=== PATIENT | male | born 1945 | race African-American/Black ===

== ENCOUNTER 2017-06-04 03:04 | Inpatient (IN) | payer OTHER, BC ==
[~2017-06-04] VITALS: Ht 188 cm; Wt 121.7 kg
[2017-06-04 03:07] VITALS: Ht 188 cm; Wt 121.7 kg
[2017-06-04 04:05] LABS: BASOPHIL % 0.4 % (0-2); PLATELET COUNT 233 x10^3mcL (130-400)
[2017-06-04 04:08] LABS: CALCIUM 8.3 mg/dL (8.5-10.1); CARBON DIOXIDE 22.1 mmol/L (21-32); CHLORIDE SERUM 107 mmol/L (98-107); CREATININE SERUM 1.7 mg/dL (0.7-1.3); GLUCOSE SERUM 300 mg/dL (74-106); POTASSIUM SERUM 3.9 mmol/L (3.5-5.1); SODIUM SERUM 141 mmol/L (136-145)
[2017-06-04 04:16] LABS: ALBUMIN 2.6 g/dL (3.4-5.0); ALKALINE PHOSPHATASE 76 U/L (46-116); ALT/SGPT 24 U/L (16-63); AST/SGOT 11 U/L (15-37); BILIRUBIN TOTAL 0.14 mg/dL (0.20-1.00); FREE T4 0.75 ng/dL (0.76-1.46); RED CELL DISTRIBUTION WIDTH 16.4 % (11.5-14.5); TOTAL PROTEIN, SERUM 6.6 g/dL (6.4-8.2)
[2017-06-04 07:09] VITALS: BP 172/121
[2017-06-04 07:45] LABS: T3 TOTAL 0.57 ng/mL
[2017-06-04 08:05] LABS: CHOLESTEROL/HDL RATIO 3.4; PHOSPHOROUS 3.5 mg/dL (2.5-4.9)
[2017-06-04 08:07] LABS: FREE T4 0.75 ng/dL (0.76-1.46)
[2017-06-04 08:12] LABS: T4(THYROXINE) 2.6 ug/dL (4.7-13.3)
[2017-06-04 09:32] VITALS: BP 159/120
[2017-06-04] MEDS ORDERED: METOPROLOL SUCC50 M2 PO (10:43)
[2017-06-04] MEDS ORDERED: LISINOPRIL5 MG PO (10:43)
[2017-06-04] MEDS ORDERED: POTASSIUM CHLO20 ME1 PO (10:44)
[2017-06-04] MEDS ORDERED: AMITIZA24 MC1 PO (10:46)
[2017-06-04] MEDS ORDERED: [UNRECOGNIZED DRUG - CODE] PO (10:47)
[2017-06-04] MEDS ORDERED: LYRICA50 M1 PO (10:48)
[2017-06-04 13:30] VITALS: BP 171/112
[2017-06-04 13:40] VITALS: BP 171/112
[2017-06-04 16:48] VITALS: BP 160/104
[2017-06-04 19:15] VITALS: BP 137/94
[2017-06-05 03:03] LABS: UA SPECIFIC GRAVITY 1.025 (1.005-1.035); microscopic required? YES; urine erythrocyte TRACE (NEGATIVE)
[2017-06-05 06:29] VITALS: BP 148/83
[2017-06-05 08:29] VITALS: BP 149/114
[2017-06-05 09:35] VITALS: BP 141/94
[2017-06-05 12:53] VITALS: BP 143/95; BP 158/98
[2017-06-05 17:13] VITALS: BP 141/94
[2017-06-05 19:15] VITALS: BP 140/81
[2017-06-06 05:24] VITALS: BP 124/86
[2017-06-06 06:04] LABS: BASOPHIL % 0.4 % (0-2); PLATELET COUNT 214 x10^3mcL (130-400)
[2017-06-06 06:35] LABS: CALCIUM 8.4 mg/dL (8.5-10.1); CARBON DIOXIDE 22.1 mmol/L (21-32); CHLORIDE SERUM 106 mmol/L (98-107); CREATININE SERUM 1.3 mg/dL (0.7-1.3); GLUCOSE SERUM 151 mg/dL (74-106); SODIUM SERUM 134 mmol/L (136-145)
[2017-06-06 06:42] LABS: RED CELL DISTRIBUTION WIDTH 16.3 % (11.5-14.5)
[2017-06-06 09:11] VITALS: BP 152/76
[2017-06-06 13:04] VITALS: BP 132/86
[2017-06-06 17:20] VITALS: BP 127/80
[2017-06-06 20:22] VITALS: BP 128/81
[2017-06-07 05:38] VITALS: BP 126/87
[2017-06-07 06:25] LABS: BASOPHIL % 0.5 % (0-2); PLATELET COUNT 209 x10^3mcL (130-400)
[2017-06-07 06:40] LABS: CALCIUM 8.6 mg/dL (8.5-10.1); CARBON DIOXIDE 24.1 mmol/L (21-32); CHLORIDE SERUM 105 mmol/L (98-107); CREATININE SERUM 1.3 mg/dL (0.7-1.3); GLUCOSE SERUM 204 mg/dL (74-106); POTASSIUM SERUM 3.9 mmol/L (3.5-5.1); SODIUM SERUM 140 mmol/L (136-145)
[2017-06-07 06:44] LABS: RED CELL DISTRIBUTION WIDTH 16.5 % (11.5-14.5)
[2017-06-07 09:02] VITALS: BP 118/79
[2017-06-07] MEDS ORDERED: LEVOFLOXACIN500 M1 PO (10:13)
[2017-06-07] MEDS ORDERED: LAC PO (10:14)
[2017-06-07] MEDS ORDERED: CLEOCIN HCL150 MG PO (10:14)
[2017-06-07 16:37] VITALS: BP 118/79
[2017-06-07 17:15] VITALS: BP 122/72
[2017-06-07 17:18] VITALS: BP 122/72
== END 2017-06-07 19:40 | DRG 177 ==
LOC: ED 03:04 → DU 05:19
PROVIDERS: Emergency Medicine; Family Medicine
DX: J69.0 Pneumonitis due to inhalation of food and vomit (principal); J96.01 Acute respiratory failure with hypoxia; I50.43 Acute on chronic combined systolic (congestive) and diastolic (congestive) heart failure; N17.0 Acute kidney failure with tubular necrosis; E43 Unspecified severe protein-calorie malnutrition; I47.1 Supraventricular tachycardia; I42.9 Cardiomyopathy, unspecified; J44.1 Chronic obstructive pulmonary disease with (acute) exacerbation; K21.9 Gastro-esophageal reflux disease without esophagitis; G47.33 Obstructive sleep apnea (adult) (pediatric); E11.65 Type 2 diabetes mellitus with hyperglycemia; E11.51 Type 2 diabetes mellitus with diabetic peripheral angiopathy without gangrene; I16.0 Hypertensive urgency; I11.0 Hypertensive heart disease with heart failure; I25.10 Atherosclerotic heart disease of native coronary artery without angina pectoris; E66.9 Obesity, unspecified; Z68.36 Body mass index [BMI] 36.0-36.9, adult; Z95.5 Presence of coronary angioplasty implant and graft; Z87.891 Personal history of nicotine dependence
CPT/HCPCS: 83880; 84439; 94150; 97110-GP; 97116-GP; 97530-GP; J0696; J1644; J1815; J1885; J1940; J1956; J3490; J7030; J7040; J7620; Q0092

== ENCOUNTER 2017-06-19 16:09 | Inpatient (IN) | payer OTHER, BC ==
[~2017-06-19] VITALS: Ht 188 cm; Wt 126.4 kg
[~2017-06-19 16:09] MED LIST: AMITIZA24 MC1 PO; CLEOCIN HCL150 MG PO; LAC PO; LEVOFLOXACIN500 M1 PO; LISINOPRIL5 MG PO; LYRICA50 M1 PO; METOPROLOL SUCC50 M2 PO; POTASSIUM CHLO20 ME1 PO; [UNRECOGNIZED DRUG - CODE] PO
[2017-06-19 17:31] LABS: BASOPHIL % 0.4 % (0-2); PLATELET COUNT 195 x10^3mcL (130-400)
[2017-06-19 17:41] LABS: RED CELL DISTRIBUTION WIDTH 15.4 % (11.5-14.5)
[2017-06-19 17:43] LABS: CALCIUM 8.3 mg/dL (8.5-10.1); CARBON DIOXIDE 23.3 mmol/L (21-32); CHLORIDE SERUM 102 mmol/L (98-107); CREATININE SERUM 1.3 mg/dL (0.7-1.3); GLUCOSE SERUM 247 mg/dL (74-106); POTASSIUM SERUM 3.7 mmol/L (3.5-5.1); SODIUM SERUM 136 mmol/L (136-145)
[2017-06-19 17:44] LABS: AMPHETAMINE QUAL UR NONE DETECTED (NEG <=1000)
[2017-06-19 17:47] LABS: ALKALINE PHOSPHATASE 90 U/L (46-116); ALT/SGPT 34 U/L (16-63); AST/SGOT 25 U/L (15-37); BILIRUBIN TOTAL 0.27 mg/dL (0.20-1.00); MAGNESIUM 1.6 mg/dL (1.8-2.4); TOTAL PROTEIN, SERUM 7.5 g/dL (6.4-8.2)
[2017-06-19 17:48] LABS: ALBUMIN 2.9 g/dL (3.4-5.0)
[2017-06-19 17:58] LABS: T3 TOTAL 0.76 ng/mL
[2017-06-19 18:03] LABS: FREE THYROXINE INDEX 1.6 ug/dL (1.4-4.5); T4(THYROXINE) 3.8 ug/dL (4.7-13.3)
[2017-06-19 18:38] LABS: microscopic required? YES; urine erythrocyte TRACE (NEGATIVE)
[2017-06-19] MEDS ORDERED: [UNRECOGNIZED DRUG - CODE] PO (18:51)
[2017-06-19] MEDS ORDERED: LYRICA50 M1 (18:51)
[2017-06-19] MEDS ORDERED: AMITIZA24 MC1 PO (18:52)
[2017-06-19] MEDS ORDERED: ZESTRIL5 MG PO (18:53)
[2017-06-19] MEDS ORDERED: POTASSIUM CHLO20 ME1 PO (18:53)
[2017-06-19 18:54] LABS: CHOLESTEROL/HDL RATIO 3.1
[2017-06-19] MEDS ORDERED: METOPROLOL SUCC50 M2 PO ×2 (18:54→22:05)
[2017-06-19] MEDS ORDERED: LIPI20 PO (19:46)
[2017-06-19] MEDS ORDERED: CARVEDILOL6.25 M1 PO (19:50)
[2017-06-19] MEDS ORDERED: LANTUS SOLOS100 U/M1 SC (20:11)
[2017-06-19 20:19] VITALS: BP 137/98
[2017-06-19 23:52] VITALS: BP 118/71
[2017-06-20 03:25] VITALS: BP 122/71
[2017-06-20 05:22] LABS: BASOPHIL % 0.5 % (0-2); PLATELET COUNT 198 x10^3mcL (130-400)
[2017-06-20 05:31] LABS: RED CELL DISTRIBUTION WIDTH 14.9 % (11.5-14.5)
[2017-06-20 05:35] LABS: CALCIUM 8.3 mg/dL (8.5-10.1); CARBON DIOXIDE 28.8 mmol/L (21-32); CHLORIDE SERUM 103 mmol/L (98-107); CREATININE SERUM 1.4 mg/dL (0.7-1.3); GLUCOSE SERUM 189 mg/dL (74-106); MAGNESIUM 2.2 mg/dL (1.8-2.4); POTASSIUM SERUM 3.5 mmol/L (3.5-5.1); SODIUM SERUM 138 mmol/L (136-145)
[2017-06-20 07:45] VITALS: BP 114/62
[2017-06-20 11:49] VITALS: BP 137/78
[2017-06-20 15:22] VITALS: BP 142/78
[2017-06-20 18:25] VITALS: BP 139/81
[2017-06-20 21:12] VITALS: BP 154/96
[2017-06-21 05:41] VITALS: BP 141/85
[2017-06-21 06:30] LABS: BASOPHIL % 0.3 % (0-2); PLATELET COUNT 202 x10^3mcL (130-400)
[2017-06-21 06:36] LABS: CALCIUM 8.6 mg/dL (8.5-10.1); CARBON DIOXIDE 28.4 mmol/L (21-32); CHLORIDE SERUM 105 mmol/L (98-107); CREATININE SERUM 1.3 mg/dL (0.7-1.3); GLUCOSE SERUM 84 mg/dL (74-106); MAGNESIUM 2.2 mg/dL (1.8-2.4); PHOSPHOROUS 3.6 mg/dL (2.5-4.9); POTASSIUM SERUM 3.9 mmol/L (3.5-5.1); SODIUM SERUM 139 mmol/L (136-145)
[2017-06-21 06:43] LABS: RED CELL DISTRIBUTION WIDTH 15.4 % (11.5-14.5)
[2017-06-21 09:40] VITALS: BP 141/85
[2017-06-21 13:45] VITALS: BP 125/73
[2017-06-21 16:49] VITALS: BP 126/69
[2017-06-21 19:31] VITALS: Ht 188 cm; Wt 126.4 kg
[2017-06-21 20:51] VITALS: BP 189/108
[2017-06-21 22:02] VITALS: BP 147/85
[2017-06-22 06:13] VITALS: BP 153/94
[2017-06-22 07:02] LABS: BASOPHIL % 0.3 % (0-2); PLATELET COUNT 218 x10^3mcL (130-400)
[2017-06-22 07:16] LABS: CALCIUM 9.1 mg/dL (8.5-10.1); CARBON DIOXIDE 27.9 mmol/L (21-32); CHLORIDE SERUM 104 mmol/L (98-107); CREATININE SERUM 1.3 mg/dL (0.7-1.3); GLUCOSE SERUM 99 mg/dL (74-106); PHOSPHOROUS 3.5 mg/dL (2.5-4.9); POTASSIUM SERUM 4.3 mmol/L (3.5-5.1); SODIUM SERUM 139 mmol/L (136-145)
[2017-06-22 07:47] LABS: RED CELL DISTRIBUTION WIDTH 15.3 % (11.5-14.5)
[2017-06-22 08:39] VITALS: BP 166/93
[2017-06-22 12:36] VITALS: BP 174/87
[2017-06-22] MEDS ORDERED: XARELTO20 M1 PO (12:53)
[2017-06-22] MEDS ORDERED: PROS5 PO (12:54)
[2017-06-22] MEDS ORDERED: COR200 PO ×2 (12:56→12:57)
[2017-06-22] MEDS ORDERED: NIT0.4 SL (12:58)
[2017-06-22] MEDS ORDERED: TOP50 PO (13:03)
[2017-06-22 13:59] VITALS: BP 174/87
[2017-06-22 14:07] VITALS: BP 150/98
== END 2017-06-22 16:10 | disposition home health service (06) | DRG 291 ==
LOC: ED 16:09 → IC 18:10 → DU 18:10 → IC 19:54 → DU 06-20 18:09
PROVIDERS: Emergency Medicine; Family Medicine
DX: I11.0 Hypertensive heart disease with heart failure (principal); N17.0 Acute kidney failure with tubular necrosis; E44.0 Moderate protein-calorie malnutrition; I48.91 Unspecified atrial fibrillation; I50.43 Acute on chronic combined systolic (congestive) and diastolic (congestive) heart failure; E83.42 Hypomagnesemia; R33.9 Retention of urine, unspecified; Z68.35 Body mass index [BMI] 35.0-35.9, adult; E11.40 Type 2 diabetes mellitus with diabetic neuropathy, unspecified; K21.9 Gastro-esophageal reflux disease without esophagitis; N40.0 Benign prostatic hyperplasia without lower urinary tract symptoms; R31.9 Hematuria, unspecified; E11.65 Type 2 diabetes mellitus with hyperglycemia; E11.21 Type 2 diabetes mellitus with diabetic nephropathy; J44.9 Chronic obstructive pulmonary disease, unspecified; R26.81 Unsteadiness on feet; I42.9 Cardiomyopathy, unspecified; I25.119 Atherosclerotic heart disease of native coronary artery with unspecified angina pectoris; I16.0 Hypertensive urgency; Z95.5 Presence of coronary angioplasty implant and graft; Z99.3 Dependence on wheelchair; Z79.4 Long term (current) use of insulin; Z79.899 Other long term (current) drug therapy; Z87.01 Personal history of pneumonia (recurrent)
CPT/HCPCS: 76770; 83880; 84439; 94150; 97110-GP; 97116-GP; 97530-GP; J1644; J1815; J1940; J2270; J2405; J3475; J3490; J7030; J7040; Q0092

== ENCOUNTER 2017-08-10 12:14 | Observation (INO) | payer OTHER, BC ==
[2017-08-10] VITALS (7 sets, daily range): BP systolic 153–180; BP diastolic 99–112; Ht 188 cm; Wt 125.3 kg
[~2017-08-10] VITALS: Ht 188 cm; Wt 125.3 kg
[~2017-08-10 12:14] MED LIST changes: +CARVEDILOL6.25 M1 PO; +COR200 PO; +LANTUS SOLOS100 U/M1 SC; +LIPI20 PO; +LYRICA50 M1; +NIT0.4 SL; +PROS5 PO; +TOP50 PO; +XARELTO20 M1 PO; +ZESTRIL5 MG PO
[2017-08-10 12:54] LABS: BASOPHIL % 0.7 % (0-2); PLATELET COUNT 199 x10^3mcL (130-400); RED CELL DISTRIBUTION WIDTH 14.5 % (11.5-14.5)
[2017-08-10 12:59] LABS: CALCIUM 8.9 mg/dL (8.5-10.1); CARBON DIOXIDE 24.4 mmol/L (21-32); CHLORIDE SERUM 104 mmol/L (98-107); CREATININE SERUM 1.4 mg/dL (0.7-1.3); GLUCOSE SERUM 157 mg/dL (74-106); POTASSIUM SERUM 3.8 mmol/L (3.5-5.1); SODIUM SERUM 141 mmol/L (136-145)
[2017-08-10 14:03] LABS: microscopic required? YES; urine erythrocyte 1+ (NEGATIVE)
[2017-08-10 14:12] LABS: AMPHETAMINE QUAL UR NONE DETECTED
[2017-08-10 15:46] LABS: MAGNESIUM 1.8 mg/dL (1.8-2.4); PHOSPHOROUS 3.2 mg/dL (2.5-4.9)
[2017-08-10 15:49] LABS: CHOLESTEROL/HDL RATIO 2.7
[2017-08-10 15:55] LABS: FREE T4 0.98 ng/dL (0.76-1.46); FREE THYROXINE INDEX 1.9 ug/dL (1.4-4.5); T3 TOTAL 0.7 ng/mL; T4(THYROXINE) 4.7 ug/dL (4.7-13.3)
[2017-08-11 05:27] VITALS: BP 139/88
[2017-08-11 07:12] LABS: BASOPHIL % 0.4 % (0-2); PLATELET COUNT 205 x10^3mcL (130-400); RED CELL DISTRIBUTION WIDTH 14.3 % (11.5-14.5)
[2017-08-11 07:57] LABS: CALCIUM 8.6 mg/dL (8.5-10.1); CARBON DIOXIDE 22.8 mmol/L (21-32); CHLORIDE SERUM 107 mmol/L (98-107); CREATININE SERUM 1.3 mg/dL (0.7-1.3); GLUCOSE SERUM 83 mg/dL (74-106); MAGNESIUM 1.8 mg/dL (1.8-2.4); POTASSIUM SERUM 3.5 mmol/L (3.5-5.1); SODIUM SERUM 140 mmol/L (136-145)
[2017-08-11 09:25] VITALS: BP 165/100
[2017-08-11 16:05] VITALS: BP 154/106
[2017-08-11 16:20] VITALS: BP 154/106
[2017-08-11 18:03] VITALS: BP 175/106
[2017-08-11 18:31] VITALS: BP 149/95
== END 2017-08-11 18:50 | disposition home health service (06) | DRG 308 ==
LOC: ED 12:14 → DU 14:44 → EDBEDREQ 14:47 → DU 15:17
PROVIDERS: Emergency Medicine; Family Medicine
DX: I47.1 Supraventricular tachycardia (principal); N17.0 Acute kidney failure with tubular necrosis; R80.9 Proteinuria, unspecified; I25.10 Atherosclerotic heart disease of native coronary artery without angina pectoris; E11.65 Type 2 diabetes mellitus with hyperglycemia; E11.42 Type 2 diabetes mellitus with diabetic polyneuropathy; E02 Subclinical iodine-deficiency hypothyroidism; I48.91 Unspecified atrial fibrillation; N40.0 Benign prostatic hyperplasia without lower urinary tract symptoms; I16.0 Hypertensive urgency; F14.10 Cocaine abuse, uncomplicated; Z68.35 Body mass index [BMI] 35.0-35.9, adult; Z95.5 Presence of coronary angioplasty implant and graft
CPT/HCPCS: 83880; 84439; G0378; J0360; J1885; J3490; J7030; Q0092

== ENCOUNTER 2017-08-24 12:09 | Emergency (ER) | payer OTHER, BC ==
[~2017-08-24] VITALS: Ht 188 cm; Wt 128.8 kg
[2017-08-24 12:18] VITALS: Ht 188 cm; Wt 128.8 kg
[2017-08-24 12:54] LABS: BASOPHIL % 0.4 % (0-2); PLATELET COUNT 230 x10^3mcL (130-400); RED CELL DISTRIBUTION WIDTH 14.4 % (11.5-14.5)
[2017-08-24 13:06] LABS: CALCIUM 8.9 mg/dL (8.5-10.1); CARBON DIOXIDE 27.9 mmol/L (21-32); CHLORIDE SERUM 103 mmol/L (98-107); CREATININE SERUM 1.4 mg/dL (0.7-1.3); GLUCOSE SERUM 216 mg/dL (74-106); POTASSIUM SERUM 3.9 mmol/L (3.5-5.1); SODIUM SERUM 137 mmol/L (136-145)
[2017-08-24 13:13] LABS: ALKALINE PHOSPHATASE 113 U/L (46-116); ALT/SGPT 30 U/L (16-63); AST/SGOT 20 U/L (15-37); BILIRUBIN TOTAL 0.3 mg/dL (0.20-1.00); CHOLESTEROL 146 mg/dL (<200); CHOLESTEROL/HDL RATIO 2.9; HDL CHOLESTEROL 50 mg/dL (40-60); LIPASE 91 IU/L (73-393); TOTAL PROTEIN, SERUM 8.2 g/dL (6.4-8.2); TRIGLYCERIDES 125 mg/dL (<150)
[2017-08-24 13:18] LABS: ALBUMIN 3.3 g/dL (3.4-5.0); T3 TOTAL 0.59 ng/mL
[2017-08-24 13:21] LABS: FREE T4 0.85 ng/dL (0.76-1.46)
[2017-08-24 13:23] LABS: FREE THYROXINE INDEX 1.6 ug/dL (1.4-4.5)
[2017-08-24 14:16] LABS: MAGNESIUM 1.9 mg/dL (1.8-2.4); PHOSPHOROUS 2.8 mg/dL (2.5-4.9)
[2017-08-24 17:57] LABS: microscopic required? YES; urine erythrocyte 1+ (NEGATIVE)
[2017-08-24 18:21] LABS: AMPHETAMINE QUAL UR NONE DETECTED (See below)
[2017-08-24 22:10] VITALS: BP 168/109
== END 2017-08-24 22:10 | disposition home or self-care (01) ==
LOC: ED 12:09
PROVIDERS: Family Medicine; Specialist
DX: I25.10 Atherosclerotic heart disease of native coronary artery without angina pectoris (principal); I10 Essential (primary) hypertension; E11.9 Type 2 diabetes mellitus without complications
CPT/HCPCS: 83880; 84439; J1815; J1940; J3490; Q0092

== ENCOUNTER 2017-09-20 03:03 | Inpatient (IN) | payer OTHER, BC ==
[~2017-09-20] VITALS: Ht 188 cm; Wt 129.7 kg
[2017-09-20] VITALS (7 sets, daily range): BP systolic 139–178; BP diastolic 89–105; Ht 188 cm; Wt 129.7 kg
[2017-09-20 03:46] LABS: BASOPHIL % 0.5 % (0-2); PLATELET COUNT 208 x10^3mcL (130-400)
[2017-09-20 04:10] LABS: CALCIUM 8.8 mg/dL (8.5-10.1); CARBON DIOXIDE 22.5 mmol/L (21-32); CHLORIDE SERUM 106 mmol/L (98-107); CREATININE SERUM 1.5 mg/dL (0.7-1.3); GLUCOSE SERUM 154 mg/dL (74-106); POTASSIUM SERUM 3.7 mmol/L (3.5-5.1); SODIUM SERUM 140 mmol/L (136-145)
[2017-09-20 04:20] LABS: ALKALINE PHOSPHATASE 101 U/L (46-116); ALT/SGPT 25 U/L (16-63); AST/SGOT 28 U/L (15-37); TOTAL PROTEIN, SERUM 7.7 g/dL (6.4-8.2)
[2017-09-20 04:28] LABS: ALBUMIN 3.1 g/dL (3.4-5.0)
[2017-09-20 05:17] LABS: AMPHETAMINE QUAL UR NONE DETECTED (See below)
[2017-09-20 08:16] LABS: FREE T4 0.96 ng/dL (0.76-1.46)
[2017-09-20 08:17] LABS: FREE THYROXINE INDEX 1.6 ug/dL (1.4-4.5); T4(THYROXINE) 3.8 ug/dL (4.7-13.3)
[2017-09-20 08:28] LABS: T3 TOTAL 0.65 ng/mL
[2017-09-20 08:51] LABS: CHOLESTEROL/HDL RATIO 2.6; MAGNESIUM 1.8 mg/dL (1.8-2.4); PHOSPHOROUS 3.8 mg/dL (2.5-4.9)
[2017-09-20 09:11] LABS: microscopic required? YES; urine erythrocyte 1+ (NEGATIVE)
[2017-09-21 05:43] VITALS: BP 145/91
[2017-09-21 07:47] LABS: BASOPHIL % 0.5 % (0-2); PLATELET COUNT 186 x10^3mcL (130-400)
[2017-09-21 07:49] LABS: RED CELL DISTRIBUTION WIDTH 15.3 % (11.5-14.5); rbc morphology (normal/abnorm) ABNORMAL (NORMAL)
[2017-09-21 08:06] LABS: CALCIUM 8.2 mg/dL (8.5-10.1); CARBON DIOXIDE 24.5 mmol/L (21-32); CHLORIDE SERUM 104 mmol/L (98-107); CREATININE SERUM 1.3 mg/dL (0.7-1.3); GLUCOSE SERUM 168 mg/dL (74-106); POTASSIUM SERUM 3.8 mmol/L (3.5-5.1); SODIUM SERUM 139 mmol/L (136-145)
[2017-09-21 14:51] VITALS: BP 157/98
[2017-09-21 18:31] VITALS: BP 158/102
[2017-09-21 21:34] VITALS: BP 169/110
[2017-09-22] VITALS (8 sets, daily range): BP systolic 131–170; BP diastolic 68–106
[2017-09-22 09:42] LABS: BASOPHIL % 0.4 % (0-2); PLATELET COUNT 187 x10^3mcL (130-400)
[2017-09-22 09:44] LABS: RED CELL DISTRIBUTION WIDTH 15.2 % (11.5-14.5)
[2017-09-22 10:00] LABS: CALCIUM 8.6 mg/dL (8.5-10.1); CARBON DIOXIDE 25.3 mmol/L (21-32); CHLORIDE SERUM 103 mmol/L (98-107); CREATININE SERUM 1.3 mg/dL (0.7-1.3); GLUCOSE SERUM 213 mg/dL (74-106); MAGNESIUM 1.8 mg/dL (1.8-2.4); PHOSPHOROUS 3.6 mg/dL (2.5-4.9); POTASSIUM SERUM 4.2 mmol/L (3.5-5.1); SODIUM SERUM 138 mmol/L (136-145)
[2017-09-22] MEDS ORDERED: COR200 PO (13:52)
[2017-09-22] MEDS ORDERED: XARELTO20 M1 PO (13:52)
[2017-09-22] MEDS ORDERED: LIPI10 PO (13:54)
[2017-09-22] MEDS ORDERED: TOP50 PO (13:54)
[2017-09-22] MEDS ORDERED: ZES10 PO (13:55)
[2017-09-22] MEDS ORDERED: NOR5 PO (13:55)
[2017-09-22] MEDS ORDERED: ECO81 PO (13:56)
[2017-09-22] MEDS ORDERED: ZES20 PO (13:56)
== END 2017-09-22 15:15 | disposition home or self-care (01) | DRG 304 ==
LOC: ED 03:03 → DU 05:32
PROVIDERS: Emergency Medicine; Internal Medicine
DX: I16.0 Hypertensive urgency (principal); I50.43 Acute on chronic combined systolic (congestive) and diastolic (congestive) heart failure; N17.0 Acute kidney failure with tubular necrosis; E44.1 Mild protein-calorie malnutrition; I11.0 Hypertensive heart disease with heart failure; E11.65 Type 2 diabetes mellitus with hyperglycemia; E11.42 Type 2 diabetes mellitus with diabetic polyneuropathy; Z68.36 Body mass index [BMI] 36.0-36.9, adult; Z79.01 Long term (current) use of anticoagulants; Z79.4 Long term (current) use of insulin
CPT/HCPCS: 83880; 84439; J3490; J7030; Q0092

== ENCOUNTER 2017-09-24 21:35 | Inpatient (IN) | payer OTHER, BC ==
[~2017-09-24] VITALS: Ht 188 cm; Wt 125.0 kg
[~2017-09-24 21:35] MED LIST changes: +ECO81 PO; +LIPI10 PO; +NOR5 PO; +ZES10 PO; +ZES20 PO
[2017-09-24 21:39] VITALS: Ht 188 cm; Wt 125.0 kg
[2017-09-24 23:03] LABS: BASOPHIL % 0.6 % (0-2); PLATELET COUNT 211 x10^3mcL (130-400)
[2017-09-24 23:09] LABS: RED CELL DISTRIBUTION WIDTH 15.4 % (11.5-14.5)
[2017-09-24 23:30] LABS: microscopic required? YES; urine erythrocyte 1+ (NEGATIVE)
[2017-09-25 00:26] LABS: CALCIUM 9.2 mg/dL (8.5-10.1); CARBON DIOXIDE 27.2 mmol/L (21-32); CHLORIDE SERUM 103 mmol/L (98-107); CREATININE SERUM 1.4 mg/dL (0.7-1.3); GLUCOSE SERUM 180 mg/dL (74-106); OSMOLALITY SERUM 300 mOsm/kg (278-298); POTASSIUM SERUM 4.1 mmol/L (3.5-5.1); SODIUM SERUM 139 mmol/L (136-145)
[2017-09-25 00:40] LABS: ALKALINE PHOSPHATASE 105 U/L (46-116); ALT/SGPT 27 U/L (16-63); AST/SGOT 17 U/L (15-37); BILIRUBIN TOTAL 0.3 mg/dL (0.20-1.00); FREE T4 0.94 ng/dL (0.76-1.46); LIPASE 90 IU/L (73-393); TOTAL PROTEIN, SERUM 8.1 g/dL (6.4-8.2)
[2017-09-25 00:54] LABS: ALBUMIN 3.1 g/dL (3.4-5.0)
[2017-09-25 02:27] VITALS: BP 149/87
[2017-09-25 05:12] VITALS: BP 151/93
[2017-09-25 09:00] VITALS: BP 162/93
[2017-09-25 12:16] VITALS: BP 154/92
[2017-09-25 18:27] VITALS: BP 149/90
[2017-09-25 21:35] VITALS: BP 118/89
[2017-09-26 05:51] VITALS: BP 129/86
[2017-09-26 06:43] LABS: BASOPHIL % 0.3 % (0-2); PLATELET COUNT 185 x10^3mcL (130-400)
[2017-09-26 06:51] LABS: RED CELL DISTRIBUTION WIDTH 14.9 % (11.5-14.5)
[2017-09-26 07:04] LABS: CALCIUM 7.9 mg/dL (8.5-10.1); CARBON DIOXIDE 26.5 mmol/L (21-32); CHLORIDE SERUM 107 mmol/L (98-107); CREATININE SERUM 1.3 mg/dL (0.7-1.3); GLUCOSE SERUM 146 mg/dL (74-106); MAGNESIUM 1.7 mg/dL (1.8-2.4); POTASSIUM SERUM 3.8 mmol/L (3.5-5.1); SODIUM SERUM 140 mmol/L (136-145)
[2017-09-26 09:19] VITALS: BP 147/89
[2017-09-26 13:23] VITALS: BP 130/82
[2017-09-26 17:39] VITALS: BP 149/93
[2017-09-26 21:18] VITALS: BP 150/85
[2017-09-27 05:55] VITALS: BP 155/86
[2017-09-27 06:51] LABS: BASOPHIL % 0.6 % (0-2); PLATELET COUNT 224 x10^3mcL (130-400); RED CELL DISTRIBUTION WIDTH 14.4 % (11.5-14.5)
[2017-09-27 06:56] LABS: CALCIUM 9.3 mg/dL (8.5-10.1); CARBON DIOXIDE 27.8 mmol/L (21-32); CHLORIDE SERUM 103 mmol/L (98-107); CREATININE SERUM 1.3 mg/dL (0.7-1.3); GLUCOSE SERUM 137 mg/dL (74-106); MAGNESIUM 1.9 mg/dL (1.8-2.4); PHOSPHOROUS 3.7 mg/dL (2.5-4.9); POTASSIUM SERUM 3.9 mmol/L (3.5-5.1); SODIUM SERUM 136 mmol/L (136-145)
[2017-09-27 08:54] VITALS: BP 168/95
[2017-09-27 13:34] VITALS: BP 136/88
[2017-09-27 17:15] VITALS: BP 162/92
[2017-09-27 20:42] VITALS: BP 157/88
[2017-09-28 05:38] VITALS: BP 140/82
[2017-09-28 08:28] VITALS: BP 138/78
[2017-09-28 13:22] VITALS: BP 144/76
[2017-09-28] MEDS ORDERED: XARELTO20 M1 PO (14:46)
[2017-09-28] MEDS ORDERED: COR200 PO (14:49)
[2017-09-28] MEDS ORDERED: LIPI10 PO (14:50)
[2017-09-28] MEDS ORDERED: TOP50 PO (14:53)
[2017-09-28] MEDS ORDERED: ADA30 PO (14:57)
[2017-09-28] MEDS ORDERED: ZES20 PO (14:58)
== END 2017-09-28 16:00 | disposition home or self-care (01) | DRG 291 ==
LOC: ED 21:35 → DU 09-25 00:28
PROVIDERS: Emergency Medicine; Family Medicine; Internal Medicine
DX: I11.0 Hypertensive heart disease with heart failure (principal); N17.0 Acute kidney failure with tubular necrosis; E44.0 Moderate protein-calorie malnutrition; I16.0 Hypertensive urgency; I50.43 Acute on chronic combined systolic (congestive) and diastolic (congestive) heart failure; I42.0 Dilated cardiomyopathy; I48.0 Paroxysmal atrial fibrillation; E11.65 Type 2 diabetes mellitus with hyperglycemia; E11.51 Type 2 diabetes mellitus with diabetic peripheral angiopathy without gangrene; E11.42 Type 2 diabetes mellitus with diabetic polyneuropathy; R80.9 Proteinuria, unspecified; E83.42 Hypomagnesemia; N28.1 Cyst of kidney, acquired; M94.0 Chondrocostal junction syndrome [Tietze]; K21.9 Gastro-esophageal reflux disease without esophagitis; I25.10 Atherosclerotic heart disease of native coronary artery without angina pectoris; Z68.35 Body mass index [BMI] 35.0-35.9, adult; Z95.5 Presence of coronary angioplasty implant and graft
CPT/HCPCS: 83880; 84439; 85378; 97110-GP; 97116-GP; 97530-GP; A9500; J2785; J7030; Q0092; Q9967

== ENCOUNTER 2017-10-27 11:35 | Inpatient (IN) | payer OTHER, BC ==
[~2017-10-27] VITALS: Ht 188 cm; Wt 127.7 kg
[~2017-10-27 11:35] MED LIST changes: +ADA30 PO
[2017-10-27 11:45] VITALS: Ht 188 cm; Wt 127.7 kg
[2017-10-27 11:58] LABS: BASOPHIL % 0.4 % (0-2); PLATELET COUNT 201 x10^3mcL (130-400)
[2017-10-27 12:18] LABS: CALCIUM 8.9 mg/dL (8.5-10.1); CARBON DIOXIDE 23.5 mmol/L (21-32); CHLORIDE SERUM 104 mmol/L (98-107); CREATININE SERUM 1.5 mg/dL (0.7-1.3); GLUCOSE SERUM 236 mg/dL (74-106); POTASSIUM SERUM 4.1 mmol/L (3.5-5.1); SODIUM SERUM 136 mmol/L (136-145)
[2017-10-27 12:23] LABS: ALBUMIN 3.1 g/dL (3.4-5.0); ALKALINE PHOSPHATASE 97 U/L (46-116); ALT/SGPT 20 U/L (16-63); AST/SGOT 22 U/L (15-37); BILIRUBIN TOTAL 0.4 mg/dL (0.20-1.00); TOTAL PROTEIN, SERUM 7.9 g/dL (6.4-8.2)
[2017-10-27 13:53] LABS: MAGNESIUM 1.9 mg/dL (1.8-2.4); PHOSPHOROUS 3.2 mg/dL (2.5-4.9)
[2017-10-27 13:58] LABS: CHOLESTEROL/HDL RATIO 2.4
[2017-10-27 14:06] LABS: FREE T4 1.08 ng/dL (0.76-1.46)
[2017-10-27 14:11] LABS: T3 TOTAL 0.53 ng/mL
[2017-10-27 14:17] LABS: FREE THYROXINE INDEX 1.8 ug/dL (1.4-4.5); T4(THYROXINE) 4.4 ug/dL (4.7-13.3)
[2017-10-27 14:45] LABS: microscopic required? YES; urine erythrocyte 1+ (NEGATIVE)
[2017-10-27 15:41] LABS: AMPHETAMINE QUAL UR NONE DETECTED (See below)
[2017-10-27 15:50] VITALS: BP 171/90
[2017-10-27 16:28] VITALS: BP 171/90
[2017-10-27 18:51] VITALS: BP 159/91
[2017-10-27 21:18] VITALS: BP 173/95
[2017-10-27 22:50] VITALS: BP 154/102
[2017-10-28 00:53] VITALS: BP 149/95
[2017-10-28 06:12] VITALS: BP 105/71
[2017-10-28 06:17] LABS: BASOPHIL % 0.5 % (0-2); PLATELET COUNT 207 x10^3mcL (130-400)
[2017-10-28 06:25] LABS: CALCIUM 8.7 mg/dL (8.5-10.1); CARBON DIOXIDE 23.2 mmol/L (21-32); CHLORIDE SERUM 104 mmol/L (98-107); CREATININE SERUM 1.2 mg/dL (0.7-1.3); GLUCOSE SERUM 100 mg/dL (74-106); MAGNESIUM 1.8 mg/dL (1.8-2.4); PHOSPHOROUS 4.2 mg/dL (2.5-4.9); POTASSIUM SERUM 3.8 mmol/L (3.5-5.1); SODIUM SERUM 136 mmol/L (136-145)
[2017-10-28 09:12] VITALS: BP 122/86
[2017-10-28 13:21] VITALS: BP 109/71
[2017-10-28] MEDS ORDERED: PROCARDIA XL90 MG PO (14:14)
[2017-10-28 15:16] VITALS: BP 109/71
== END 2017-10-28 18:23 | disposition home or self-care (01) | DRG 304 ==
LOC: ED 11:35 → DU 13:05
PROVIDERS: Emergency Medicine; Family Medicine
DX: I16.0 Hypertensive urgency (principal); N17.0 Acute kidney failure with tubular necrosis; E44.1 Mild protein-calorie malnutrition; D68.69 Other thrombophilia; E11.65 Type 2 diabetes mellitus with hyperglycemia; I48.0 Paroxysmal atrial fibrillation; I50.9 Heart failure, unspecified; G47.33 Obstructive sleep apnea (adult) (pediatric); E66.01 Morbid (severe) obesity due to excess calories; Z68.36 Body mass index [BMI] 36.0-36.9, adult
CPT/HCPCS: 82962; 83880; 84439; 94150; G0480; J2270; J3490; J7030; J7620; Q0092

== ENCOUNTER 2017-11-18 22:32 | Emergency (ER) | payer OTHER, BC ==
[~2017-11-18] VITALS: Ht 188 cm; Wt 129.7 kg
[~2017-11-18 22:32] MED LIST changes: +PROCARDIA XL90 MG PO
[2017-11-18 22:40] VITALS: Ht 188 cm; Wt 129.7 kg
[2017-11-18 23:37] LABS: BASOPHIL % 0.7 % (0-2); PLATELET COUNT 214 x10^3mcL (130-400)
[2017-11-18 23:42] LABS: RED CELL DISTRIBUTION WIDTH 14.8 % (11.5-14.5)
[2017-11-18 23:45] LABS: CALCIUM 8.9 mg/dL (8.5-10.1); CARBON DIOXIDE 28.6 mmol/L (21-32); CHLORIDE SERUM 104 mmol/L (98-107); CREATININE SERUM 1.8 mg/dL (0.7-1.3); GLUCOSE SERUM 221 mg/dL (74-106); POTASSIUM SERUM 3.9 mmol/L (3.5-5.1); SODIUM SERUM 137 mmol/L (136-145)
[2017-11-18 23:50] LABS: ALKALINE PHOSPHATASE 96 U/L (46-116); ALT/SGPT 26 U/L (16-63); AST/SGOT 19 U/L (15-37); BILIRUBIN TOTAL 0.2 mg/dL (0.20-1.00); TOTAL PROTEIN, SERUM 7.6 g/dL (6.4-8.2)
[2017-11-19] MEDS ORDERED: LANTUS SOLOS100 U/M1 SC (01:28)
[2017-11-19] MEDS ORDERED: ASPIR-TRIN325 MG PO (01:29)
[2017-11-19 04:21] LABS: MAGNESIUM 2.1 mg/dL (1.8-2.4); PHOSPHOROUS 3.4 mg/dL (2.5-4.9)
[2017-11-19 04:27] LABS: FREE T4 0.91 ng/dL (0.76-1.46)
[2017-11-19 04:35] LABS: CHOLESTEROL/HDL RATIO 2.5; FREE THYROXINE INDEX 1.4 ug/dL (1.4-4.5); T4(THYROXINE) 3.8 ug/dL (4.7-13.3)
[2017-11-19 05:05] LABS: T3 TOTAL 0.41 ng/mL
[2017-11-19 06:31] LABS: microscopic required? YES; urine erythrocyte TRACE (NEGATIVE)
[2017-11-19 07:12] LABS: AMPHETAMINE QUAL UR NONE DETECTED (See below)
[2017-11-19 19:17] VITALS: BP 138/84
== END 2017-11-19 19:17 | disposition home or self-care (01) ==
LOC: ED 22:32 → CANBEDREQ 11-19 01:41 → ED 11-19 19:17
PROVIDERS: Emergency Medicine; Family Medicine
DX: R07.2 Precordial pain (principal); I10 Essential (primary) hypertension; E11.9 Type 2 diabetes mellitus without complications; R06.02 Shortness of breath; R61 Generalized hyperhidrosis; Z87.438 Personal history of other diseases of male genital organs
CPT/HCPCS: 82962; 83880; 84439; 85378; J1815; J7030; Q0092

== ENCOUNTER 2017-12-06 15:51 | Inpatient (IN) | payer OTHER, BC ==
[~2017-12-06] VITALS: Ht 185.4 cm; Wt 127.5 kg
[~2017-12-06 15:51] MED LIST changes: +ASPIR-TRIN325 MG PO
[2017-12-06 17:41] LABS: BASOPHIL % 0.4 % (0-2); PLATELET COUNT 240 x10^3mcL (130-400); RED CELL DISTRIBUTION WIDTH 15.6 % (11.5-14.5)
[2017-12-06 17:52] LABS: CARBON DIOXIDE 27.5 mmol/L (21-32); CHLORIDE SERUM 105 mmol/L (98-107); CREATININE SERUM 1.8 mg/dL (0.7-1.3); GLUCOSE SERUM 215 mg/dL (74-106); POTASSIUM SERUM 4.4 mmol/L (3.5-5.1); SODIUM SERUM 141 mmol/L (136-145)
[2017-12-06 17:59] LABS: ALKALINE PHOSPHATASE 98 U/L (46-116); ALT/SGPT 27 U/L (16-63); AST/SGOT 15 U/L (15-37); BILIRUBIN TOTAL 0.22 mg/dL (0.20-1.00); TOTAL PROTEIN, SERUM 7.9 g/dL (6.4-8.2)
[2017-12-06 18:00] LABS: ALBUMIN 3.1 g/dL (3.4-5.0)
[2017-12-06 19:34] LABS: MAGNESIUM 2.1 mg/dL (1.8-2.4); PHOSPHOROUS 3.7 mg/dL (2.5-4.9)
[2017-12-06 19:41] LABS: T3 TOTAL 0.54 ng/mL
[2017-12-06 20:38] VITALS: BP 150/107
[2017-12-06 21:03] LABS: FREE T4 0.92 ng/dL (0.76-1.46); T4(THYROXINE) 4.7 ug/dL (4.7-13.3)
[2017-12-07] VITALS (8 sets, daily range): BP systolic 111–166; BP diastolic 55–110
[2017-12-07] MEDS ORDERED: LIPI10 PO (02:26)
[2017-12-07] MEDS ORDERED: NOR5 PO (02:26)
[2017-12-07 06:10] LABS: BASOPHIL % 0.5 % (0-2); PLATELET COUNT 197 x10^3mcL (130-400)
[2017-12-07 06:11] LABS: RED CELL DISTRIBUTION WIDTH 15.8 % (11.5-14.5)
[2017-12-07 06:19] LABS: CALCIUM 9.3 mg/dL (8.5-10.1); CARBON DIOXIDE 24.5 mmol/L (21-32); CHLORIDE SERUM 105 mmol/L (98-107); CREATININE SERUM 1.6 mg/dL (0.7-1.3); GLUCOSE SERUM 242 mg/dL (74-106); PHOSPHOROUS 3.7 mg/dL (2.5-4.9); POTASSIUM SERUM 3.7 mmol/L (3.5-5.1); SODIUM SERUM 137 mmol/L (136-145)
[2017-12-08] VITALS: BP 143/81
[2017-12-08 04:00] VITALS: BP 130/68
[2017-12-08 06:07] LABS: BASOPHIL % 0.5 % (0-2); PLATELET COUNT 213 x10^3mcL (130-400)
[2017-12-08 06:29] LABS: RED CELL DISTRIBUTION WIDTH 14.9 % (11.5-14.5)
[2017-12-08 06:36] LABS: CALCIUM 9.2 mg/dL (8.5-10.1); CARBON DIOXIDE 26.8 mmol/L (21-32); CHLORIDE SERUM 104 mmol/L (98-107); CREATININE SERUM 1.5 mg/dL (0.7-1.3); GLUCOSE SERUM 112 mg/dL (74-106); PHOSPHOROUS 4.3 mg/dL (2.5-4.9); POTASSIUM SERUM 4.2 mmol/L (3.5-5.1); SODIUM SERUM 139 mmol/L (136-145)
[2017-12-08 07:45] VITALS: BP 139/71
[2017-12-08 09:25] VITALS: Ht 185.4 cm; Wt 127.5 kg
[2017-12-08 12:33] VITALS: BP 167/85
[2017-12-08 17:19] VITALS: BP 137/86
[2017-12-08 21:06] VITALS: BP 132/90
[2017-12-09 06:00] VITALS: BP 148/70
[2017-12-09 06:20] LABS: BASOPHIL % 0.5 % (0-2); PLATELET COUNT 204 x10^3mcL (130-400); RED CELL DISTRIBUTION WIDTH 14.5 % (11.5-14.5)
[2017-12-09 06:30] LABS: CALCIUM 8.6 mg/dL (8.5-10.1); CARBON DIOXIDE 26.9 mmol/L (21-32); CHLORIDE SERUM 106 mmol/L (98-107); CREATININE SERUM 1.4 mg/dL (0.7-1.3); GLUCOSE SERUM 120 mg/dL (74-106); MAGNESIUM 1.8 mg/dL (1.8-2.4); PHOSPHOROUS 3.6 mg/dL (2.5-4.9); POTASSIUM SERUM 3.9 mmol/L (3.5-5.1); SODIUM SERUM 142 mmol/L (136-145)
[2017-12-09 09:31] VITALS: BP 130/79
[2017-12-09] MEDS ORDERED: LOP50 PO (10:01)
[2017-12-09] MEDS ORDERED: CARCD120 PO (10:02)
[2017-12-09 11:18] VITALS: BP 130/79
[2017-12-09 11:25] VITALS: BP 130/79
== END 2017-12-09 13:00 | disposition home or self-care (01) | DRG 308 ==
LOC: ED 15:51 → IC 18:45 → EDBEDREQSVC 19:00 → EDBEDREQ 19:00 → EDBEDREQSVC 19:01 → IC 19:19 → DU 12-08 13:21
PROVIDERS: Emergency Medicine; Internal Medicine
DX: I48.92 Unspecified atrial flutter (principal); N17.0 Acute kidney failure with tubular necrosis; E44.0 Moderate protein-calorie malnutrition; I50.22 Chronic systolic (congestive) heart failure; D68.69 Other thrombophilia; Z95.5 Presence of coronary angioplasty implant and graft; I48.0 Paroxysmal atrial fibrillation; E11.65 Type 2 diabetes mellitus with hyperglycemia; I16.0 Hypertensive urgency; I11.0 Hypertensive heart disease with heart failure; I25.10 Atherosclerotic heart disease of native coronary artery without angina pectoris; G47.33 Obstructive sleep apnea (adult) (pediatric); E66.01 Morbid (severe) obesity due to excess calories; Z68.37 Body mass index [BMI] 37.0-37.9, adult; Z79.01 Long term (current) use of anticoagulants
CPT/HCPCS: 36600; 82962; 83880; 84439; 94150; J0282; J1815; J3490; J7040; J7060; Q0092

== ENCOUNTER 2018-02-17 01:30 | Inpatient (IN) | payer OTHER, BC ==
[~2018-02-17] VITALS: Ht 188 cm; Wt 130.6 kg
[2018-02-17] VITALS (7 sets, daily range): BP systolic 126–172; BP diastolic 61–92; Ht 188 cm; Wt 130.6 kg
[~2018-02-17 01:30] MED LIST changes: +CARCD120 PO; +LOP50 PO
[2018-02-17 02:18] LABS: BASOPHIL % 0.7 % (0-2); PLATELET COUNT 228 x10^3mcL (130-400)
[2018-02-17 02:30] LABS: CARBON DIOXIDE 28.4 mmol/L (21-32); CHLORIDE SERUM 102 mmol/L (98-107); CREATININE SERUM 1.4 mg/dL (0.7-1.3); GLUCOSE SERUM 177 mg/dL (74-106); POTASSIUM SERUM 3.9 mmol/L (3.5-5.1); SODIUM SERUM 139 mmol/L (136-145)
[2018-02-17 02:47] LABS: ALBUMIN 3.5 g/dL (3.4-5.0); ALKALINE PHOSPHATASE 103 U/L (46-116); ALT/SGPT 28 U/L (16-63); AST/SGOT 13 U/L (15-37); BILIRUBIN TOTAL 0.28 mg/dL (0.20-1.00); TOTAL PROTEIN, SERUM 8.3 g/dL (6.4-8.2)
[2018-02-17 03:45] LABS: CHOLESTEROL/HDL RATIO 2.3; MAGNESIUM 1.8 mg/dL (1.8-2.4); PHOSPHOROUS 2.7 mg/dL (2.5-4.9)
[2018-02-17 03:49] LABS: microscopic required? YES; urine erythrocyte 1+ (NEGATIVE)
[2018-02-17 04:04] LABS: AMPHETAMINE QUAL UR NONE DETECTED (See below)
[2018-02-17 05:08] LABS: BASOPHIL % 0.4 % (0-2); PLATELET COUNT 228 x10^3mcL (130-400)
[2018-02-17 05:10] LABS: CALCIUM 9.2 mg/dL (8.5-10.1); CARBON DIOXIDE 28.4 mmol/L (21-32); CHLORIDE SERUM 102 mmol/L (98-107); CREATININE SERUM 1.5 mg/dL (0.7-1.3); GLUCOSE SERUM 215 mg/dL (74-106); SODIUM SERUM 139 mmol/L (136-145)
[2018-02-17 05:18] LABS: RED CELL DISTRIBUTION WIDTH 16.1 % (11.5-14.5)
[2018-02-18 06:15] VITALS: BP 104/63
[2018-02-18 09:03] VITALS: BP 106/73
[2018-02-18 12:55] VITALS: BP 144/86
[2018-02-18] MEDS ORDERED: ADA90 PO (13:03)
[2018-02-18] MEDS ORDERED: ISOSORBIDE MONO30 MG PO (13:04)
[2018-02-18 13:42] VITALS: BP 144/86
== END 2018-02-18 15:25 | disposition home or self-care (01) | DRG 304 ==
LOC: ED 01:30 → DU 03:49
PROVIDERS: Emergency Medicine; Internal Medicine
DX: I16.1 Hypertensive emergency (principal); N17.0 Acute kidney failure with tubular necrosis; I25.110 Atherosclerotic heart disease of native coronary artery with unstable angina pectoris; E11.65 Type 2 diabetes mellitus with hyperglycemia; I48.2 Chronic atrial fibrillation; E78.5 Hyperlipidemia, unspecified; I25.2 Old myocardial infarction; Z79.4 Long term (current) use of insulin; Z68.24 Body mass index [BMI] 24.0-24.9, adult; Z79.01 Long term (current) use of anticoagulants; Z95.5 Presence of coronary angioplasty implant and graft
CPT/HCPCS: 82962; 83880; J2270; J2405; Q0092

== ENCOUNTER 2018-03-20 08:15 | Inpatient (IN) | payer OTHER ==
[~2018-03-20] VITALS: Ht 188 cm; Wt 132.6 kg
[~2018-03-20 08:15] MED LIST changes: +ADA90 PO; +ISOSORBIDE MONO30 MG PO
[2018-03-20 08:21] VITALS: Ht 188 cm; Wt 132.6 kg
[2018-03-20] MEDS ORDERED: DILTIAZEM HCL240 MG PO (08:35)
[2018-03-20] MEDS ORDERED: TOPROL XL100 MG PO (08:35)
--- NOTE | 2018-03-20 08:36 | NUR ---
MED REC DONE BASED ON MED IN BAG WITH PT. HOWEVER, PT REPORTS CHANGE IN MED AND IS NOT SURE WHICH MEDS WERE RECENTLY STOPPED BY MD.
--- NOTE | 2018-03-20 09:35 | NUR ---
X-RAY TEST BEING DONE AT BEDSIDE.
--- NOTE | 2018-03-20 09:39 | NUR ---
PT TO CT AT THIS TIME.
[2018-03-20 09:49] LABS: BASOPHIL % 0.4 % (0-2); PLATELET COUNT 197 x10^3mcL (130-400)
[2018-03-20 09:52] LABS: RED CELL DISTRIBUTION WIDTH 15.5 % (11.5-14.5)
[2018-03-20 09:58] LABS: CALCIUM 8.7 mg/dL (8.5-10.1); CARBON DIOXIDE 26.9 mmol/L (21-32); CHLORIDE SERUM 108 mmol/L (98-107); CREATININE SERUM 1.7 mg/dL (0.7-1.3); GLUCOSE SERUM 213 mg/dL (74-106); POTASSIUM SERUM 3.8 mmol/L (3.5-5.1); SODIUM SERUM 144 mmol/L (136-145)
[2018-03-20 10:02] LABS: ALBUMIN 2.9 g/dL (3.4-5.0); ALKALINE PHOSPHATASE 95 U/L (46-116); ALT/SGPT 8 U/L (16-63); AMYLASE 93 U/L (25-115); AST/SGOT 21 U/L (15-37); CHOLESTEROL 99 mg/dL (<200); HDL CHOLESTEROL 43 mg/dL (40-60); LIPASE 83 IU/L (73-393); TOTAL PROTEIN, SERUM 7.5 g/dL (6.4-8.2)
--- NOTE | 2018-03-20 10:09 | NUR ---
NO COMPLAINTS, SCARFER IN SR NO ECTOPY,RESP. EASY,WAITING RESULTS WILL CONTINUE TO MONITOR
--- NOTE | 2018-03-20 10:40 | NUR ---
PT AAOX3, VSS, BREATHING EASY AND UNLABORED. RESTING COMFORTABLY IN BED. NO OBVIOUS SIGNS OF DISTRESS AT THIS TIME.
--- NOTE | 2018-03-20 12:28 | NUR ---
PT GIVEN SANDWICH, OKAYED BY DR RODAS.
--- NOTE | 2018-03-20 12:40 | NUR ---
PT SITTING IN BED IN A POSITION OF COMFORT EATING A SANDWICH POST BEING CLEARED BY ERP. NO CHANGE IN STATUS AT THIS TIME. PT BEING ADMITTED AND IS AWAITING BED ASSIGNMENT.
[2018-03-20 12:41] LABS: microscopic required? YES; urine erythrocyte TRACE (NEGATIVE)
[2018-03-20 12:49] LABS: AMPHETAMINE QUAL UR NONE DETECTED (See below)
--- NOTE | 2018-03-20 14:15 | NUR ---
BED ASSIGNED (TELE ). REPORT GIVEN TO RN. PT BEING TRANSPORTED TO FLOOR.
[2018-03-20 14:36] LABS: CHOLESTEROL/HDL RATIO 2.4
--- NOTE | 2018-03-20 14:42 | NUR ---
PT AAOX3, VSS, BREATHING EASY AND UNLABOERD. NO CHANGE IN STATUS. PT BEING TRANSPORTED TO FLOOR BY RN. PT'S CARE COMPLETED BY THIS RN AT THIS TIME.
--- NOTE | 2018-03-20 14:43 | NUR ---
PT'S BELONGINGS KEPT WITH PT. NO PHONE NOTED. SHOES, PANTS AND SHIRT.
--- NOTE | 2018-03-20 14:47 | NUR ---
US TECH TO COMPLETE TEST AT BEDSIDE IN ED PRIOR TO TRANSPORT TO FLOOR.
--- NOTE | 2018-03-20 15:02 | NUR ---
BEDSIDE US TEST COMPLETED AT THIS TIME. PT AAOX3, VSS, SPEAKS IN FULL CLEAR SENTENCES, BREATHING EASY AND UNLABORED. NO OBVIOUS SIGNS OF DISTRESS AT THIS TIME. NO CHANGE IN STATUS. PT BEING TRANSPORTED TO FLOOR BY RN. PT'S CARE COMPLETED BY THIS RN AT THIS TIME.
--- NOTE | 2018-03-20 15:13 | NUR ---
PT WAS RECEIVED BY PRIMARY NURSE STAR FROM ED VIA [employer]. PT IS AAOX4. DENIES HEADACHE/DIZZINESS. ABLE TO FOLLOW COMMANDS. HAND WELDER PRODUCTION LINE COMBINATION ARE EQUAL. NO SOB NOTED, LUNG SOUNDS DIMINISHED ON AUSCULTATION, O2 SAT=97%, RA. STATED THAT HE HAS 6/10 LEFT SIDED CHEST PAIN, NON-RADIATING. W/ PACEMAKER ON THE LEFT CHEST, STERI-STRIPS NOTED. W/ BLE TRACE EDEMA. PULSES ARE PALPABLE. DENIES ABDOMINAL DISCOMFORT. BOWEL SOUNDS ACTIVE. VOIDS. IV SITE ON THE LEFT HAND IS PATENT AND INTACT. SIDE RAILS UPX2. CALL LIGHT ON REACH. PRIMARY NURSE STAR AT BEDSIDE FOR CONTINUITY OF CARE
[2018-03-20 15:28] VITALS: BP 178/78
--- NOTE | 2018-03-20 15:58 | NUR ---
SEEN BY PHYSICAL THERAPIST. USES WALKER OR WHEELCHAIR AT HOME.
--- NOTE | 2018-03-20 18:04 | NUR ---
SITTING UP IN BED EATING DINNER. GETS UP TO BR. INSTRUCTED PT TO CALL FOR ASSISTANCE OR AT LEAST SUPERVISION W/ BRP. SL TO LEFT HAND. TELE # [address] HEAD (-). UP W/ P.T. THIS AFTERNOON. VSS. A&O X 4. BREATHING FREELY ON RA.CALL LIGHT WITHIN REACH. CONTINUES WITH GENERALIZED WEAKNESS.
[2018-03-20 18:47] VITALS: BP 193/100
--- NOTE | 2018-03-20 19:26 | NUR ---
RECEIVED PATIENT FROM DAY SHIFT RN. PATIENT AAOX4. TELE #5 SR WITH ELEVATED T WAVE. PATIENT DENIES HEADACHE, DIZZINESS OR CHEST PAIN. LUNG SOUNDS DIMINISHED ON RA WITH NO SIGNS OF RESP DISTRESS. IV LEFT HAND PATENT, SL. CALL BUTTON WITHIN REACH. SAFETY PRECAUTIONS IN PLACE. WILL CONTINUE TO MONITOR.
[2018-03-20 19:37] VITALS: BP 173/82
--- NOTE | 2018-03-20 19:54 | NUR ---
PATIENT BP 173/[address] GOULD MADE AWARE, PER MD TO CONTYolandaUE TO MONITOR BP.
[2018-03-20 20:19] VITALS: BP 163/77
[2018-03-20 22:18] VITALS: BP 142/83
--- NOTE | 2018-03-20 23:53 | NUR ---
PATIENT IS ASLEEP AT THIS TIME, BREATHING EVEN AND UNLABORED NO SIGNS OF DISTRESS NOTED. SAFETY PRECAUTIONS IN PLACE. WILL CONTINUE TO MONITOR.
--- NOTE | 2018-03-21 02:50 | NUR ---
ROUNDS MADE, PATIENT IS AWAKE IN BED WATCHING TV. DENIES ANY PAIN. NO SIGNS OF DISTRESS NOTED. SAFETY PRECAUTIONS IN PLACE. WILL CONTINUE TO MONITOR.
[2018-03-21 05:28] VITALS: BP 136/64
--- NOTE | 2018-03-21 05:48 | NUR ---
PATIENT IS AWAKE IN BED RESTING. PATIENT SLEPT ON AND OFF THROUGHOUT THE NIGHT WITH NO DISTRESS. PATIENT DENIES ANY HEADACHE, DIZZINESS OR CHEST PAIN AT THIS TIME. IV LEFT HAND PATENT, SL. PATIENT MEDICATED PER EMAR. [facility]. SAFETY PRECAUTIONS IN PLACE. WILL CONTINUE TO MONITOR AND ENDORSE CARE TO DAY SHIFT RN.
[2018-03-21 06:14] LABS: BASOPHIL % 0.6 % (0-2); PLATELET COUNT 190 x10^3mcL (130-400)
[2018-03-21 06:18] LABS: CALCIUM 8.7 mg/dL (8.5-10.1); CHLORIDE SERUM 106 mmol/L (98-107); CREATININE SERUM 1.3 mg/dL (0.7-1.3); GLUCOSE SERUM 100 mg/dL (74-106); POTASSIUM SERUM 3.8 mmol/L (3.5-5.1); SODIUM SERUM 142 mmol/L (136-145)
[2018-03-21 06:26] LABS: RED CELL DISTRIBUTION WIDTH 15.4 % (11.5-14.5)
--- NOTE | 2018-03-21 07:11 | NUR ---
PATIENT IS AWAKE IN BED, DENIES ANY PAIN. NO SIGNS OF DISTRESS NOTED. ENDORSED CARE TO DAY SHIFT RN, ALL QUESTIONS ADDRESSED.
--- NOTE | 2018-03-21 08:00 | NUR ---
ALERT AND ORIENTED. SITTING UP IN BED EATING BREAKFAST. DENIES ANY LIGHTHEADEDNESS OR DIZZINESS. SLIGHT DISCOMFORT TO LEFT UPPER CHEST PACEMAKER INSERTION SITE. DENIES NEED FOR PAIN MED. TELE # 5 SR W ELEVATED T WAVE. GENERALIZED WEAKNESS. INSTRUCTED TO CALL FOR ASSISTANCE WHEN GETTING UP TO BR. SL TO LEFT HAND. BREATHING FREELY ONRA. CALL LIGHT WITHIN REACH.
[2018-03-21 10:04] VITALS: BP 152/89
[2018-03-21 11:06] VITALS: BP 136/64
--- NOTE | 2018-03-21 12:12 | NUR ---
DC'D TO HOME. WILL BE PICKED UP AFTER LUNCH. IV DC'D. TELE # 5 RETURNED TO TELE STATION. ALL DC INSTRUCTIONS REVIEWED WITH AND SIGNED BY PT. F/U HORACIO GIVEN WITH DR. LINH DEVI 04/09/18. PT ALREADY HAS F/U HORACIO WITH DR. RODRIGUEZ.
== END 2018-03-21 14:12 | disposition home or self-care (01) | DRG 304 ==
LOC: ED 08:15 → MU 13:07 → ED 13:07 → DU 13:07
PROVIDERS: Emergency Medicine; ADMIT Internal Medicine
DX: I16.0 Hypertensive urgency (principal); G93.41 Metabolic encephalopathy; N17.0 Acute kidney failure with tubular necrosis; E44.0 Moderate protein-calorie malnutrition; R55 Syncope and collapse; I11.9 Hypertensive heart disease without heart failure; I25.10 Atherosclerotic heart disease of native coronary artery without angina pectoris; E11.9 Type 2 diabetes mellitus without complications; E78.00 Pure hypercholesterolemia, unspecified; N40.0 Benign prostatic hyperplasia without lower urinary tract symptoms; I25.2 Old myocardial infarction; E66.01 Morbid (severe) obesity due to excess calories; Z95.0 Presence of cardiac pacemaker; Z95.5 Presence of coronary angioplasty implant and graft; Z79.01 Long term (current) use of anticoagulants
CPT/HCPCS: 82962; 83880; 97116-GP; C9113; Q0092

== ENCOUNTER 2018-05-07 12:19 | Inpatient (IN) | payer BC ==
[~2018-05-07] VITALS: Ht 188 cm; Wt 128.4 kg
[~2018-05-07 12:19] MED LIST changes: +DILTIAZEM HCL240 MG PO; +TOPROL XL100 MG PO
[2018-05-07 12:22] VITALS: Ht 188 cm; Wt 128.4 kg
[2018-05-07 13:51] LABS: BASOPHIL % 0.6 % (0-2); PLATELET COUNT 213 x10^3mcL (130-400); RED CELL DISTRIBUTION WIDTH 14.1 % (11.5-14.5)
[2018-05-07 14:17] LABS: CALCIUM 9.3 mg/dL (8.5-10.1); CHLORIDE SERUM 103 mmol/L (98-107); CREATININE SERUM 1.5 mg/dL (0.7-1.3); GLUCOSE SERUM 168 mg/dL (74-106); POTASSIUM SERUM 4.2 mmol/L (3.5-5.1); SODIUM SERUM 138 mmol/L (136-145)
[2018-05-07 14:21] LABS: ALBUMIN 3.5 g/dL (3.4-5.0); ALKALINE PHOSPHATASE 121 U/L (46-116); ALT/SGPT 24 U/L (16-63); AST/SGOT 16 U/L (15-37); BILIRUBIN TOTAL 0.23 mg/dL (0.20-1.00); TOTAL PROTEIN, SERUM 8.7 g/dL (6.4-8.2)
[2018-05-07 15:46] LABS: microscopic required? NO
[2018-05-07 15:48] LABS: PHOSPHOROUS 3.2 mg/dL (2.5-4.9)
[2018-05-07 16:03] LABS: CHOLESTEROL/HDL RATIO 2.5
[2018-05-07 16:18] LABS: UA SPECIFIC GRAVITY 1.015 (1.005-1.035); urine erythrocyte NEGATIVE (NEGATIVE)
[2018-05-07 16:28] VITALS: BP 118/69
[2018-05-07 16:57] LABS: AMPHETAMINE QUAL UR NONE DETECTED (See below)
[2018-05-07] MEDS ORDERED: LANTUS SOLOS100 U/M1 SC (17:20)
[2018-05-07 20:50] VITALS: BP 145/80
[2018-05-08 05:48] VITALS: BP 144/91
[2018-05-08 07:38] LABS: BASOPHIL % 0.6 % (0-2); PLATELET COUNT 189 x10^3mcL (130-400); RED CELL DISTRIBUTION WIDTH 14.1 % (11.5-14.5)
[2018-05-08 08:08] LABS: CARBON DIOXIDE 27.5 mmol/L (21-32); CHLORIDE SERUM 107 mmol/L (98-107); CREATININE SERUM 1.4 mg/dL (0.7-1.3); GLUCOSE SERUM 106 mg/dL (74-106); POTASSIUM SERUM 4.3 mmol/L (3.5-5.1); SODIUM SERUM 141 mmol/L (136-145)
[2018-05-08 08:28] VITALS: BP 151/86
[2018-05-08 12:33] VITALS: BP 137/87
[2018-05-08 14:15] VITALS: BP 137/87
[2018-05-08] MEDS ORDERED: LIPI10 PO (14:19)
== END 2018-05-08 15:35 | disposition home or self-care (01) | DRG 205 ==
LOC: ED 12:19 → DU 15:00
PROVIDERS: Emergency Medicine; ADMIT Internal Medicine
DX: M94.0 Chondrocostal junction syndrome [Tietze] (principal); N17.0 Acute kidney failure with tubular necrosis; D68.69 Other thrombophilia; I25.10 Atherosclerotic heart disease of native coronary artery without angina pectoris; I10 Essential (primary) hypertension; E11.65 Type 2 diabetes mellitus with hyperglycemia; I48.91 Unspecified atrial fibrillation; R74.0 Nonspecific elevation of levels of transaminase and lactic acid dehydrogenase [LDH]; E78.5 Hyperlipidemia, unspecified; F10.21 Alcohol dependence, in remission; F14.21 Cocaine dependence, in remission; N40.0 Benign prostatic hyperplasia without lower urinary tract symptoms; I25.2 Old myocardial infarction; Z95.0 Presence of cardiac pacemaker; Z79.4 Long term (current) use of insulin; Z68.37 Body mass index [BMI] 37.0-37.9, adult; Z95.5 Presence of coronary angioplasty implant and graft
CPT/HCPCS: 82962; 83880; J1815; J7030; Q0092

== ENCOUNTER 2018-07-15 21:06 | Inpatient (IN) | payer BC ==
[~2018-07-15] VITALS: Ht 188 cm; Wt 132.0 kg
[2018-07-15 21:18] VITALS: Ht 188 cm; Wt 132.0 kg
--- NOTE | 2018-07-15 21:30 | NUR ---
PT BIB AMBULANCE FOR C/O CHEST PAIN SINCE NOON TODAY. PT STATES "WHEN MY PRESSURE GETS HIGH IT JUST KEEPS GOING UP AND GETTING WORSE". PT STATES THE DAY WENT ON IT JUST KEPT GETTING WORSE AND WORSE. PT STATES AFTER THE NITRO THE CHEST PAIN IS DOWN TO AN 8 AND THERE IS NO LONGER BACK PAIN. PT DENIES SOB AND IS SPEAKING IN CLEAR AND FULL SENTENCES. PT HAS HX OF SVT, PACEMAKER AND PRIOR [place] WELL DM AND HTN. PT HAS EQUAL AND UNLABORED CHEST RISE. NO DISTRESS AT THIS TIME. PT STATES HE HAS NO OTHER SXS BUT HE DOES STATE RELIEF. PT CONNECTED TO CARDIAC MONITORS, PLETH OX AND BP MONITORS. MD DILLON AT BEDSIDE FOR MSE
--- NOTE | 2018-07-15 21:45 | NUR ---
2 UNSUCCESSFUL IV ATTEMPTS
--- NOTE | 2018-07-15 21:45 | NUR ---
2 UNSUCCESSFUL IV ATTEMPTS
--- NOTE | 2018-07-15 21:51 | NUR ---
REQUESTED FELIPE LEE FOR IV ATTEMPTS
--- NOTE | 2018-07-15 22:23 | NUR ---
LAB AT BEDSIDE FOR BLOOD DRAW
--- NOTE | 2018-07-15 22:28 | NUR ---
PT STATES HIS PAIN IS NOW A 5/10 AFTER THE SECOND NITRO. MD BEGUM MADE AWARE. AWAITING NEW ORDERS
[2018-07-15 22:41] LABS: CALCIUM 9.4 mg/dL (8.5-10.1); CHLORIDE SERUM 102 mmol/L (98-107); CREATININE SERUM 1.3 mg/dL (0.7-1.3); GLUCOSE SERUM 164 mg/dL (74-106); POTASSIUM SERUM 3.8 mmol/L (3.5-5.1); SODIUM SERUM 138 mmol/L (136-145)
--- NOTE | 2018-07-15 22:44 | NUR ---
X RAY AT BEDSIDE
[2018-07-15 22:45] LABS: ALKALINE PHOSPHATASE 132 U/L (46-116); ALT/SGPT 25 U/L (16-63); AST/SGOT 17 U/L (15-37); BILIRUBIN TOTAL 0.27 mg/dL (0.20-1.00); LIPASE 62 IU/L (73-393); TOTAL PROTEIN, SERUM 8.1 g/dL (6.4-8.2)
[2018-07-15 22:48] LABS: ALBUMIN 3.3 g/dL (3.4-5.0)
[2018-07-15 22:52] LABS: BASOPHIL % 0.6 % (0-2); PLATELET COUNT 231 x10^3mcL (130-400)
[2018-07-15 22:57] LABS: RED CELL DISTRIBUTION WIDTH 14.8 % (11.5-14.5)
--- NOTE | 2018-07-15 23:17 | NUR ---
MD BEGUM AT BEDSIDE DISCUSSING PLAN OF CARE WITH PATIENT
--- NOTE | 2018-07-15 23:50 | NUR ---
20G SL INSERTED TO R AC BY DR BEGUM VIA US.
--- NOTE | 2018-07-15 23:58 | NUR ---
PT TO CT VIA MEGAN
--- NOTE | 2018-07-16 00:11 | NUR ---
PT RETURNED FROM CT
--- NOTE | 2018-07-16 00:53 | NUR ---
PT SEEN ON MONITORS TO BE HAVING INTERMITTENT PVC'S. MD BEGUM MADE AWARE. NO NEW ORDERS AT THIS TIME.
--- NOTE | 2018-07-16 01:48 | NUR ---
PT SEEN WATCHING BASEBALL IN BED. NAD AT THIS TIME
--- NOTE | 2018-07-16 02:14 | NUR ---
REPORT CALLED TO CAROLINE LEE
[2018-07-16 02:34] LABS: MAGNESIUM 1.7 mg/dL (1.8-2.4); PHOSPHOROUS 2.9 mg/dL (2.5-4.9)
[2018-07-16 02:37] LABS: CHOLESTEROL/HDL RATIO 2.4
--- NOTE | 2018-07-16 02:39 | NUR ---
PT TRANSPORTED UPSTAIRS CAROLINE LEE RESUMED CARE OF PT. NO DISTRESS UPON TRANSFER
[2018-07-16 02:48] VITALS: BP 151/85
--- NOTE | 2018-07-16 03:04 | NUR ---
RECEIVED PT FROM ED VIA [facility] ACCOMPANIED BY AN RN.LUNG SOUND CTA.NO DISTRESS NOTED.DENIES ANY CP OR PRESSURE AT THIS TIME. FOLLOW COMMANDS.AAOX4.ABDOMEN SOFT.SKIN INTACT.TELE#25 SR.IV SITE PATENT AND INTACT.BED IN LOWEST POSITION,CALL LIGHT WITHIN REACH. WILL CONTINUE TO MONITOR.
--- NOTE | 2018-07-16 05:26 | NUR ---
PT ASLEEP.NO SOB NOTED. NO CP/PRESSURE AT THIS TIME. DENIES PAIN.BED IN LOWEST POSITION,CALL LIGHT WITIHIN REACH. WILL CONTINUE TO MONITOR.
[2018-07-16 06:36] LABS: BASOPHIL % 0.3 % (0-2); PLATELET COUNT 221 x10^3mcL (130-400)
[2018-07-16 06:42] VITALS: BP 153/89
[2018-07-16 06:48] LABS: CALCIUM 9.1 mg/dL (8.5-10.1); CARBON DIOXIDE 27.1 mmol/L (21-32); CHLORIDE SERUM 101 mmol/L (98-107); CREATININE SERUM 1.2 mg/dL (0.7-1.3); GLUCOSE SERUM 217 mg/dL (74-106); POTASSIUM SERUM 3.9 mmol/L (3.5-5.1); SODIUM SERUM 137 mmol/L (136-145)
[2018-07-16 06:53] LABS: RED CELL DISTRIBUTION WIDTH 14.8 % (11.5-14.5)
--- NOTE | 2018-07-16 07:33 | NUR ---
CARE ENDORSED TO DAY NURSE SOLANGE.
--- NOTE | 2018-07-16 07:55 | NUR ---
RAYMON HERNANDEZ AND ORIENTED.HANS CHEST YAHAIRA AT [facility].CALL LIGHT W/ IN REACH.NO ACUTE DSITRESS NOTED.VOIIDNG WELL. ATE BREAKFAST WELL. WILL CONT. PLAN OF CARE.
[2018-07-16 09:57] VITALS: BP 145/73
--- NOTE | 2018-07-16 11:06 | NUR ---
PT. RESTING COMFORTABLY IN BED. CALL LIGHT W/ IN REACH,DENIES ANY PAIN.
--- NOTE | 2018-07-16 11:45 | NUR ---
DR. STEVENS HERE AND SEEN THE PT. W/ NEW ORDERS OK PT. TO GO HOME TODAY,PT. MADE AWARE AND AWAITING FOR RIDE.
[2018-07-16 12:55] VITALS: BP 141/91
--- NOTE | 2018-07-16 13:00 | NUR ---
DENIES ANY CHEST PAIN AT THIS TIME. ATE LUNCH 100%,ABLE TO AMBULATE IN THE BATHROOM AND VOIDING WELL. NO ACUTE DISTRESS NOTED.
[2018-07-16] MEDS ORDERED: TOPROL XL100 MG PO (13:38)
[2018-07-16 14:59] VITALS: BP 141/91
--- NOTE | 2018-07-16 17:13 | NUR ---
PT. WENT HOME W/ STABLE CONDITION PER W/C ACC. W/ HIS GRANDSON ,DISCHARGED INSTRUCTIONS AND PRESCRIPTION GIVEN AND DISCUSSED TO PT. AND VERBALIZED UNDERSTANDING OF INSTRUCTIONS GIVEN NO ACUTE DISTRESS NOTED.ESCORTED BRODY HOLLAND IN THE LOBBY.
== END 2018-07-16 17:30 | disposition home or self-care (01) | DRG 206 ==
LOC: ED 21:06 → DU 07-16 02:04
PROVIDERS: Emergency Medicine; Internal Medicine; ADMIT Family Medicine
DX: M94.0 Chondrocostal junction syndrome [Tietze] (principal); D68.69 Other thrombophilia; E44.1 Mild protein-calorie malnutrition; I16.0 Hypertensive urgency; I25.10 Atherosclerotic heart disease of native coronary artery without angina pectoris; I48.0 Paroxysmal atrial fibrillation; E11.65 Type 2 diabetes mellitus with hyperglycemia; E78.5 Hyperlipidemia, unspecified; F14.21 Cocaine dependence, in remission; N40.0 Benign prostatic hyperplasia without lower urinary tract symptoms; I25.2 Old myocardial infarction; Z95.0 Presence of cardiac pacemaker; Z79.4 Long term (current) use of insulin; Z68.37 Body mass index [BMI] 37.0-37.9, adult; Z79.01 Long term (current) use of anticoagulants; Z95.5 Presence of coronary angioplasty implant and graft; Z91.14 Patient's other noncompliance with medication regimen
CPT/HCPCS: 82962; J1815; J2270; J2405; Q0092; Q9967

== ENCOUNTER 2018-08-24 23:18 | Inpatient (IN) | payer BC ==
[~2018-08-24] VITALS: Ht 188 cm; Wt 132.1 kg
[2018-08-24 23:25] VITALS: Ht 188 cm; Wt 132.1 kg
--- NOTE | 2018-08-24 23:26 | NUR ---
PT BIB BY [facility] TO BED 5 VIA [employer]. PER MEDIC PT DAUGHTER CALLED 911 AFTER PT STARTED C/O CHEST PAIN RATED 9/10. PT GIVEN 2 NITRO SL IN ROUTE. PT CHEST PAIN DECREASED AND PT RATED PAIN 6/10 AND DESCRIBED PAIN PRESSURE. PER MEDIC PT BLOOD SURAR WAS 259. PT HAS HISTORY OF HTN, DM. PT HAS NKA. PT HAS HISTORY OF NEUROPATHY AND IS UNABLE TO WALK UNASSISTED. PT AAOX4, NO S/S OF DISTRESS NOTED, RESPIRATIONS EVEN AND UNLABORED. ON ARRIVAL TO ED PT REPORTS PAIN HAS DECREAED TO A 4/10, PT BP 160/121. PT ATTATCH TO FOREIGN EXCHANGE TRADER, NSR. PT TAKEN OFF NRM AND PLACED ON 2L O2 VIA NS. DR SLAUGHTER AT BEDSIDE PERFORMING MSE.
[2018-08-25] VITALS (8 sets, daily range): BP systolic 151–193; BP diastolic 67–93
[2018-08-25 00:14] LABS: BASOPHIL % 0.5 % (0-2); PLATELET COUNT 185 x10^3mcL (130-400); RED CELL DISTRIBUTION WIDTH 14.2 % (11.5-14.5)
[2018-08-25 00:23] LABS: CALCIUM 9.4 mg/dL (8.5-10.1); CARBON DIOXIDE 28.1 mmol/L (21-32); CHLORIDE SERUM 103 mmol/L (98-107); CREATININE SERUM 1.3 mg/dL (0.7-1.3); GLUCOSE SERUM 266 mg/dL (74-106); POTASSIUM SERUM 4.5 mmol/L (3.5-5.1); SODIUM SERUM 140 mmol/L (136-145)
[2018-08-25 00:28] LABS: ALKALINE PHOSPHATASE 126 U/L (46-116); ALT/SGPT 29 U/L (16-63); AST/SGOT 22 U/L (15-37); BILIRUBIN TOTAL 0.2 mg/dL (0.20-1.00); TOTAL PROTEIN, SERUM 7.5 g/dL (6.4-8.2)
[2018-08-25 00:31] LABS: ALBUMIN 3.1 g/dL (3.4-5.0)
[2018-08-25] MEDS ORDERED: FUROSEMIDE40 MG (01:02)
--- NOTE | 2018-08-25 01:03 | NUR ---
PT SITTING UP IN BED, NO S/S OF DISTRESS NOTED, RESPIRATIONS EVEN AND UNLABORED. PT REPORTS PAIN HAS DECREASED TO A 3/10 AND IS TOLERABLE. PT MADE AWARE OF ADMISSION PER DR SLAUGHTER.
--- NOTE | 2018-08-25 01:18 | NUR ---
REPORT GIVEN TO OFELIA LEE TO ASSUME CARE OF PT.
--- NOTE | 2018-08-25 01:30 | NUR ---
RECEIVED PT VIA [employer] FROM ED, ACCOMPANIED BY NURSE. TELE #19, SR 78. PT REPORTS CP HAS SUBSIDED SINCE ADMISSION, REPORTS ONLY A DULL PAIN IN LEFT UPPER CHEST (NONRADIATING). NITRO PASTE IN PLACE TO LEFT UPPER CHEST. PT AMB TO BED ON OWN STRENGTH, STS HE USUALLY USES A WALKER AT HOME YET SINCE ITS A SHORT DISTANCE, HE CAN MANAGE WALKING TO BED ON OWN. PT REPORTS HX OF NEUROPATHY IN BLE, HTN, DM AND PACEMAKER. PT AOX4, DENIES CABRALES/DIZZINESS. PT REPORTS ONLY CABRALES WHEN HIS BP IS HIGH. RESP EVEN AND UNLABORED ON 2LNC, DENIES SOB. CTA UPPER LOBES, DIM BILAT BASES. PULSES PALPABLE BILAT, (+) NEUROPATHY IN BLE. PT WITH TRACE EDEMA BLE, OBESE PT, ABD ROUND, ACTIVE BOWEL SOUNDS X4. DENIES PAIN W/ PALPATION. LBM= 6/21 (NORMAL). PT DENIES DYSURIA, URINAL AT BEDSIDE. PT HAS FULL ROM BUE/BLE. SKIN INTACT. PT REPORTS USING A WALKER AT HOME OR A W/C FOR LONG DISTANCES D/T THE NEUROPATHY PAIN. PT REPORTS REG DIET AT HOME, DENIES PAYING ATTENTION TO SODIUM CONTENT OF FOOD. PT REPORTS LIMITING HIS H2O INTAKE D/T HIS "CHF PROBLEM". IV SITE TO THE LFA PATENT, NO REDNESS, SWELLING OR PAIN NOTED. ALL COMFORT AND SAFETY MEASURES PROVIDED FOR, CALL LIGHT WITHIN REACH, BED IN LOWEST POSITION, WILL CONTINUE TO MONITOR.
[2018-08-25 05:04] LABS: microscopic required? YES; urine erythrocyte TRACE (NEGATIVE)
--- NOTE | 2018-08-25 05:10 | NUR ---
PT RESTED IN INTERVALS DURING SHIFT, NO ACUTE CHANGES OCCURRING OVERNIGHT. BP REMAINS HIGH THIS MORNING, MEDICATED PT WITH HYDRALAZINE 25MG PO, WILL RECHECK BP IN 1 HOUR. PT REPORTS CABRALES UNDER CONTROL AT THIS TIME. IV SITE REMAINS PATENT TO LFA, NS @ 10ML/HR. NO REDNESS, SWELLING OR PAIN NOTED. ALL COMFORT AND SAFETY MEASURES PROVIDED FOR, CALL LIGHT WITHIN REACH, BED IN LOWST POSITION, WILL CONTINUE TO MONITOR.
[2018-08-25 05:12] LABS: AMPHETAMINE QUAL UR NONE DETECTED (See below)
--- NOTE | 2018-08-25 07:03 | NUR ---
RECEIVED BEDSIDE REPORT FROM COMPOUNDING ASSISTANT NURSE. PATIENT IS STABLE RESTING IN BED COMFORTABLY. NO APPARENT SIGNS OF PAIN, SOB, OR RESPIRATORY DISTRESS. ON TELE 19. PATIENT DENIES CHEST PAIN. ALERT, ORIENTED X4. IV TO LFA IS CDI. NO EDEMA OR ERYTHEMA NOTED AT SITE. CALL LIGHT WITHIN REACH. BED IN LOW POSITION, PATIENT HAS A PACEMAKER. LEFT UPPER CHEST. QUESTIONS AND CONCERNS ADDRESSED. SAFETY PRECAUTION IN PLACE.
--- NOTE | 2018-08-25 07:20 | NUR ---
ENDORSED ALL CARE TO DAYSHIFT NURSE, ALL QUESTIONS AND CONCERNS ADDRESSED, ALL SAFETY AND COMFORT MEASURES PROVIDED FOR, CALL LIGHT WIHTHIN REACH, BED IN LOWEST POSITION, WILL CONTINUE TO MONITOR.
--- NOTE | 2018-08-25 07:47 | NUR ---
PHYSICAL ASSESSMENT COMPLETED. PLEASE SEE PROBLEM FOCUSED CARE FOR DETAILS.
[2018-08-25 07:52] LABS: BASOPHIL % 0.5 % (0-2); PLATELET COUNT 178 x10^3mcL (130-400); RED CELL DISTRIBUTION WIDTH 14.4 % (11.5-14.5)
[2018-08-25 08:33] LABS: CALCIUM 9.1 mg/dL (8.5-10.1); CARBON DIOXIDE 25.1 mmol/L (21-32); CHLORIDE SERUM 107 mmol/L (98-107); CREATININE SERUM 1.3 mg/dL (0.7-1.3); GLUCOSE SERUM 261 mg/dL (74-106); POTASSIUM SERUM 3.6 mmol/L (3.5-5.1); SODIUM SERUM 141 mmol/L (136-145)
--- NOTE | 2018-08-25 09:02 | NUR ---
CONSULTED WITH DR JOVANNI ORO PATIENT MEDICATION AND MOST RECENT BP 182/82 AND HEART RATE 69. PER DR BAIG GIVE LISINOPRIL NOW, RECHECK BP AFTER 60MIN AND GIVE METOPROLOL IF STILL ELEVATED. HOLD CARDIZEM FOR NOW.
--- NOTE | 2018-08-25 09:14 | NUR ---
ADMINISTERED MEDICATION PER EMAR. PATIENT TOLORATED WELL. PATIENT EDUCATED ON NEED FOR MEDICATION WELL SDVERSE EFFECTS TO REPORT. PATIENT VERBALIZED UNDERSTANDING OF EDUCATION. CALL LIGHT WITHIN REACH. BED IN LOW POSITION. QUESTIONS AND CONCERNS ADDRESSED. PATIENT DENIES OTHER NEEDS AT THIS TIME. SAFETY PRECAUTIONS IN PLACE. CONSULTED WITH MD BAIG PRIOR TO ADMINISTERING MEDICATION DUE TO BP 182/82 MAO 106. HR 69. MADE AWARE PATIENT HAS PERMANENT PACEMAKER. PER MD GIVE MEDS ORDERED.
--- NOTE | 2018-08-25 09:19 | NUR ---
MD DIMAS AND MD BAIG AT BEDSIDE.
[2018-08-25 09:43] LABS: CHOLESTEROL/HDL RATIO 2.4; MAGNESIUM 2.1 mg/dL (1.8-2.4); PHOSPHOROUS 3.4 mg/dL (2.5-4.9)
--- NOTE | 2018-08-25 12:16 | NUR ---
PATIENT IS STABLE, NO APPARENT SIGNS OF PAIN, SOB, OR RESPIRATORY DISTRESS. PATIENT IS RESTING COMFORTABLY IN BED WATCHING TELEVSION. PATIENT DENIES CHEST PAIN, DIZZINESS OR SOB. MEDICATED ERALIER FOR CABRALES. PATIENT STATES MEDICATION WAS EFFECTIVE. CALL LIGHT WITHIN REACH. BED RAILS UP X2. PATIENT DENIES OTHER NEEDS AT THIS TIME. QUESTIONS AND CONCERNS ADDRESSED, SAFETY PRECAUTIONS IN PLACE.
--- NOTE | 2018-08-25 13:08 | NUR ---
PATIENT C/O CABRALES. ADMINISTERED MEDICATION PER EMAR. PATIENT TOLORATED WELL. PATIENT EDUCATED ON NEED FOR MEDICATION WELL SDVERSE EFFECTS TO REPORT. PATIENT VERBALIZED UNDERSTANDING OF EDUCATION. CALL LIGHT WITHIN REACH. BED IN LOW POSITION. QUESTIONS AND CONCERNS ADDRESSED. PATIENT DENIES OTHER NEEDS AT THIS TIME. SAFETY PRECAUTIONS IN PLACE.
--- NOTE | 2018-08-25 14:46 | NUR ---
PATIENT IS STABLE, RESTING IN BED COMFORTABLY. NO APPARENT SIGNS OF PAIN, SOB OR RESPIRAOTY DISTRESS. CALL LIGHT WITHIN REACH. BED IN LOW POSITION. QUESTIONS AND CONCERNS ADDRESSED. PATIENT DENIES OTHER NEEDS AT THIS TIME. SAFETY PRECAUTIONS IN PLACE.
--- NOTE | 2018-08-25 15:03 | NUR ---
REASSESSED PATIENT'S VITAL SIGNS BP 151/67 MAP 84; HR 66, OXYGEN SAT 96% ON ROOM AIR. TEMP 97.8. DENIES PAIN AT THIS TIME. WILL MAKE MD AWARE OF LATEST VITAL SIGNS.
--- NOTE | 2018-08-25 16:13 | NUR ---
PATIENT IS STABLE, NO APPARENT SIGNS OF PAIN, SOB, OR RESPIRATORY DISTRESS. PATIENT GIVEN DISCHARGE INSTRUCTIONS, AND PRSCRIPTIONS FOR HOME MEDICATIONS. PATIENT VERBALIZED UNDERSTANDING OF INSTRUCTIONS. FAMILY AT BEDSIDE. ALL PERSONAL BELONGINGS WITH PATIENT. IV REMOVED, TELE REMOVED AND RETURNED. PATIENT TAKEN DOWN TO LOBBY BY SENSITIZED PAPER TESTER VIA WHEEL CHAIR.
[2018-08-25] MEDS ORDERED: NITROSTAT0.4 MG SL (16:17)
== END 2018-08-25 16:30 | disposition home or self-care (01) | DRG 304 ==
LOC: ED 23:18 → DU 08-25 00:53
PROVIDERS: Emergency Medicine; ADMIT General Practice
DX: I16.0 Hypertensive urgency (principal); N17.0 Acute kidney failure with tubular necrosis; E44.1 Mild protein-calorie malnutrition; D68.69 Other thrombophilia; I48.0 Paroxysmal atrial fibrillation; E11.65 Type 2 diabetes mellitus with hyperglycemia; E78.5 Hyperlipidemia, unspecified; R80.9 Proteinuria, unspecified; I25.10 Atherosclerotic heart disease of native coronary artery without angina pectoris; F14.21 Cocaine dependence, in remission; Z95.0 Presence of cardiac pacemaker; Z79.4 Long term (current) use of insulin; Z68.36 Body mass index [BMI] 36.0-36.9, adult; Z79.01 Long term (current) use of anticoagulants; Z95.5 Presence of coronary angioplasty implant and graft; Z91.14 Patient's other noncompliance with medication regimen
CPT/HCPCS: 82962; 83880; G0378; J1815; J1885; J3490; J7030; Q0092

== ENCOUNTER 2018-08-29 19:42 | Emergency (ER) | payer BC ==
[~2018-08-29] VITALS: Ht 188 cm; Wt 130.2 kg
[~2018-08-29 19:42] MED LIST changes: +FUROSEMIDE40 MG; +NITROSTAT0.4 MG SL
[2018-08-29 19:46] VITALS: Ht 188 cm; Wt 130.2 kg
[2018-08-29 20:34] LABS: BASOPHIL % 0.3 % (0-2); PLATELET COUNT 209 x10^3mcL (130-400)
[2018-08-29 20:37] LABS: RED CELL DISTRIBUTION WIDTH 14.9 % (11.5-14.5)
[2018-08-29 20:45] LABS: CARBON DIOXIDE 22.7 mmol/L (21-32); CHLORIDE SERUM 104 mmol/L (98-107); CREATININE SERUM 1.5 mg/dL (0.7-1.3); GLUCOSE SERUM 307 mg/dL (74-106); POTASSIUM SERUM 4.5 mmol/L (3.5-5.1); SODIUM SERUM 138 mmol/L (136-145)
[2018-08-29 20:47] LABS: ALBUMIN 3.1 g/dL (3.4-5.0); ALKALINE PHOSPHATASE 136 U/L (46-116); ALT/SGPT 29 U/L (16-63); AST/SGOT 16 U/L (15-37); BILIRUBIN TOTAL 0.34 mg/dL (0.20-1.00); LIPASE 50 IU/L (73-393); TOTAL PROTEIN, SERUM 7.8 g/dL (6.4-8.2)
[2018-08-29 22:31] VITALS: BP 172/88
== END 2018-08-29 22:31 | disposition left against medical advice (07) ==
LOC: ED 19:42
PROVIDERS: Emergency Medicine
DX: I10 Essential (primary) hypertension (principal); R07.89 Other chest pain; R51 Headache; E11.9 Type 2 diabetes mellitus without complications; Z98.890 Other specified postprocedural states
CPT/HCPCS: 36415; Q0092

== ENCOUNTER 2018-09-01 02:58 | Inpatient (IN) | payer BC ==
[2018-09-01] VITALS (7 sets, daily range): BP systolic 119–176; BP diastolic 52–86; Ht 188 cm; Wt 129.0 kg
[~2018-09-01] VITALS: Ht 188 cm; Wt 129.0 kg
[2018-09-01 04:00] LABS: BASOPHIL % 0.3 % (0-2); PLATELET COUNT 233 x10^3mcL (130-400)
[2018-09-01 04:13] LABS: RED CELL DISTRIBUTION WIDTH 14.7 % (11.5-14.5)
[2018-09-01 04:33] LABS: FREE T4 1.61 ng/dL (0.76-1.46); FREE THYROXINE INDEX 2.9 ug/dL (1.4-4.5); T4(THYROXINE) 6.9 ug/dL (4.7-13.3)
[2018-09-01 05:16] LABS: ALBUMIN 3.6 g/dL (3.4-5.0); ALKALINE PHOSPHATASE 145 U/L (46-116); AST/SGOT 31 U/L (15-37); BILIRUBIN TOTAL 0.2 mg/dL (0.20-1.00); CARBON DIOXIDE 20.5 mmol/L (21-32); CHLORIDE SERUM 104 mmol/L (98-107); GLUCOSE SERUM 207 mg/dL (74-106); MAGNESIUM 1.7 mg/dL (1.8-2.4); POTASSIUM SERUM 4.1 mmol/L (3.5-5.1); SODIUM SERUM 144 mmol/L (136-145); T3 TOTAL 1.1 ng/mL; TOTAL PROTEIN, SERUM 8.2 g/dL (6.4-8.2)
[2018-09-01 05:47] LABS: ALT/SGPT 48 U/L (16-63); CALCIUM 9.9 mg/dL (8.5-10.1); CREATININE SERUM 1.3 mg/dL (0.7-1.3)
[2018-09-01 06:02] LABS: AMPHETAMINE QUAL UR NONE DETECTED (See below)
[2018-09-01 11:25] LABS: UA SPECIFIC GRAVITY 1.015 (1.005-1.035); microscopic required? YES; urine erythrocyte TRACE (NEGATIVE)
[2018-09-01 12:52] LABS: PHOSPHOROUS 3.2 mg/dL (2.5-4.9)
[2018-09-01 12:59] LABS: CHOLESTEROL/HDL RATIO 2.4
[2018-09-02] VITALS (10 sets, daily range): BP systolic 146–202; BP diastolic 53–98
[2018-09-02 06:47] LABS: CALCIUM 9.6 mg/dL (8.5-10.1); CARBON DIOXIDE 25.4 mmol/L (21-32); CHLORIDE SERUM 105 mmol/L (98-107); CREATININE SERUM 1.2 mg/dL (0.7-1.3); GLUCOSE SERUM 249 mg/dL (74-106); MAGNESIUM 1.8 mg/dL (1.8-2.4); POTASSIUM SERUM 4.1 mmol/L (3.5-5.1); SODIUM SERUM 141 mmol/L (136-145)
[2018-09-02 08:13] LABS: BASOPHIL % 0.1 % (0-2); PLATELET COUNT 200 x10^3mcL (130-400); RED CELL DISTRIBUTION WIDTH 14.2 % (11.5-14.5)
[2018-09-02] MEDS ORDERED: NIFEDIPINE60 MG PO (13:18)
[2018-09-02] MEDS ORDERED: METOPROLOL SUC200 M2 PO (13:18)
[2018-09-02] MEDS ORDERED: LIPI10 PO (13:19)
[2018-09-02] MEDS ORDERED: XARELTO10 M1 PO (13:19)
[2018-09-02] MEDS ORDERED: ZESTRIL20 MG PO (13:19)
[2018-09-03 01:05] VITALS: BP 163/61
[2018-09-03 06:03] LABS: BASOPHIL % 0.3 % (0-2); PLATELET COUNT 206 x10^3mcL (130-400)
[2018-09-03 06:07] VITALS: BP 148/78
[2018-09-03 06:23] LABS: CALCIUM 9.9 mg/dL (8.5-10.1); CARBON DIOXIDE 22.9 mmol/L (21-32); CHLORIDE SERUM 106 mmol/L (98-107); CREATININE SERUM 1.1 mg/dL (0.7-1.3); GLUCOSE SERUM 184 mg/dL (74-106); POTASSIUM SERUM 3.8 mmol/L (3.5-5.1); SODIUM SERUM 143 mmol/L (136-145)
[2018-09-03 06:42] LABS: RED CELL DISTRIBUTION WIDTH 14.6 % (11.5-14.5)
[2018-09-03 09:53] VITALS: BP 154/62
[2018-09-03 12:51] VITALS: BP 142/75
== END 2018-09-03 13:45 | disposition home or self-care (01) | DRG 304 ==
LOC: ED 02:58 → DU 05:51
PROVIDERS: Emergency Medicine; ADMIT Internal Medicine
DX: I16.0 Hypertensive urgency (principal); I11.0 Hypertensive heart disease with heart failure; E11.00 Type 2 diabetes mellitus with hyperosmolarity without nonketotic hyperglycemic-hyperosmolar coma (NKHHC); E11.65 Type 2 diabetes mellitus with hyperglycemia; I50.9 Heart failure, unspecified; I25.10 Atherosclerotic heart disease of native coronary artery without angina pectoris; N40.0 Benign prostatic hyperplasia without lower urinary tract symptoms; E78.00 Pure hypercholesterolemia, unspecified; E78.5 Hyperlipidemia, unspecified; I25.2 Old myocardial infarction; Z95.0 Presence of cardiac pacemaker; Z95.5 Presence of coronary angioplasty implant and graft; Z79.4 Long term (current) use of insulin; Z91.14 Patient's other noncompliance with medication regimen
CPT/HCPCS: 82962; 83880; 84439; G0378; J0360; J1815; J2405; J3010; J3490; J7030

== ENCOUNTER 2019-02-20 14:57 | Inpatient (IN) | payer BC ==
[~2019-02-20] VITALS: Ht 188 cm; Wt 129.7 kg
[~2019-02-20 14:57] MED LIST changes: +METOPROLOL SUC200 M2 PO; +NIFEDIPINE60 MG PO; +XARELTO10 M1 PO; +ZESTRIL20 MG PO
[2019-02-20 15:18] VITALS: Ht 188 cm; Wt 129.7 kg
[2019-02-20 15:23] LABS: BASOPHIL % 0.4 % (0-2); PLATELET COUNT 239 x10^3mcL (130-400); RED CELL DISTRIBUTION WIDTH 15.3 % (11.5-14.5)
[2019-02-20 15:34] LABS: CALCIUM 9.5 mg/dL (8.5-10.1); CARBON DIOXIDE 27.3 mmol/L (21-32); CHLORIDE SERUM 100 mmol/L (98-107); CREATININE SERUM 1.4 mg/dL (0.7-1.3); GLUCOSE SERUM 218 mg/dL (74-106); POTASSIUM SERUM 3.9 mmol/L (3.5-5.1); SODIUM SERUM 136 mmol/L (136-145)
[2019-02-20 15:38] LABS: ALBUMIN 3.4 g/dL (3.4-5.0); ALKALINE PHOSPHATASE 155 U/L (46-116); ALT/SGPT 31 U/L (16-63); AST/SGOT 13 U/L (15-37); BILIRUBIN TOTAL 0.29 mg/dL (0.20-1.00)
[2019-02-20 15:39] LABS: TOTAL PROTEIN, SERUM 8.8 g/dL (6.4-8.2)
--- NOTE | 2019-02-20 16:21 | NUR ---
PT PRESENTS TO ED BIBA WITH C/O DIZZINESS TODAY. 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 PT STS HE QUICKLY WENT INSIDE TO SIT DOWN. PT DENIES LOC. PT REPORTS HAVING SIMILAR DIZZY SPELLS WHEN BP IS TOO HIGH. PT DENIES N/V/D, SOB, DIAPHORESIS, HEAD PAIN, CHEST PAIN, OR BACK PAIN. PT AAOX4, RESP E/U, ON FULL CM, NO ACUTE DISTRESS NOTED AT THIS TIME.
--- NOTE | 2019-02-20 16:22 | NUR ---
PER EMS PT BLOOD SUGAR 273 IN ROUTE TO ED, SOME PVC'S NOTED WITH SINUS RHYTHM.
--- NOTE | 2019-02-20 17:41 | NUR ---
PT LAYING ON GURNEY IN POSITION OF COMFORT, AAOX4, RESP E/U, NO ACUTE DISTRESS NOTED AT THIS TIME.
[2019-02-20] MEDS ORDERED: PACERONE200 MG PO (19:46)
[2019-02-20] MEDS ORDERED: LIPI20 PO (19:47)
[2019-02-20] MEDS ORDERED: NOR5 PO (19:47)
[2019-02-20] MEDS ORDERED: METOPROLOL SUC200 M2 PO (19:47)
[2019-02-20] MEDS ORDERED: ZESTRIL20 MG PO (19:47)
[2019-02-20] MEDS ORDERED: LASIX20 MG PO (19:48)
[2019-02-20] MEDS ORDERED: LANTUS SOLOS100 U/M1 SC (19:48)
[2019-02-20] MEDS ORDERED: PROCARDIA XL60 MG PO (19:48)
[2019-02-20] MEDS ORDERED: XARELTO10 M1 PO (19:48)
[2019-02-20] MEDS ORDERED: DIGOXIN0.125 M1 PO (19:49)
--- NOTE | 2019-02-20 19:59 | NUR ---
REPORT GIVEN TO HODA ON TELE UNIT TO ASSUME CARE OF PT.
[2019-02-20 20:01] LABS: CHOLESTEROL/HDL RATIO 2.6
--- NOTE | 2019-02-20 20:24 | NUR ---
PT WHEELED UPSTAIRS TO TELE FLOOR VIA ED [facility]W[employer] C[facility]. PT ESCORTED BY JENNIFER VASQUEZ AND CHRIS LEE. NO INCIDENCE NOTED
[2019-02-20 22:33] VITALS: BP 156/87
--- NOTE | 2019-02-20 23:32 | NUR ---
RECEIVED PT FROM ED VIA GUER[facility]. KEPT COMFORTABLE IN BED. A/O X4 , ABLE TO VERBALIZE NEEDS. ADMITTED WITH COMPLAINTS OF CHESTPAIN , BUT PT DENIES CP OR ANY DISCOMFORT AT THIS TIME. HX OF PACEMAKER INSERTION, PLACED ON TELE #27, SR WITH ELEVATED T. WAVE ON THE MONITOR.RESP. EVEN AND UNLABORED. LUNG SOUNDS CLEAR BILAT. ON ROOM AIR, NO ACUTE DISTRESS NOTED. AFEBRILE AND VITAL SIGNS STABLE. SKIN WARM AND DRY TO TOUCH. NO EDEMA NOTED. AMBULATES WITH CANE/WHEELCHAIR. VOIDING FREELY. ORIENTED TO ROOM AND SURROUNDINGS. RECEIVED PT WITHOUT AN IV ACCESS FROM ED. NEW LINE STARTED ON RFA WITH #22G ANGIO. HEPLOCKED. CALL LIGHT WITHIN REACH. WILL CONTINUE TO MONITOR.
--- NOTE | 2019-02-21 01:15 | NUR ---
RESTING QUIETLY WITH EYES CLOSED, APPEARS ASLEEP, EASILY AROUSABLE. RESP. EVEN AND UNLABORED. NO ACUTE DISTRESS NOTED. WILL CONTINUE TO MONITOR.
[2019-02-21 03:07] LABS: microscopic required? YES; urine erythrocyte TRACE (NEGATIVE)
[2019-02-21 03:20] LABS: AMPHETAMINE QUAL UR NONE DETECTED (See below)
[2019-02-21 04:56] VITALS: BP 148/72
--- NOTE | 2019-02-21 05:58 | NUR ---
SLEPT WELL. NO COMPLAINTS NOTED. SR WITH BBB ON THE MONITOR, DENIES CP OR ANY DISCOMFORT AT THIS TIME. RESP. EVEN AND UNLABORED. NO ACUTE DISTRESS NOTED. AMBULATES TO THE BATHROOM, VOIDING FREELY. AFEBRILE AND VITAL SIGNS STABLE. KEPT COMFORTABLE . WILL CONTINUE TO MONITOR.
[2019-02-21 06:44] LABS: BASOPHIL % 0.2 % (0-2); PLATELET COUNT 229 x10^3mcL (130-400)
[2019-02-21 07:07] LABS: RED CELL DISTRIBUTION WIDTH 15.4 % (11.5-14.5)
[2019-02-21 07:12] LABS: CALCIUM 9.2 mg/dL (8.5-10.1); CARBON DIOXIDE 26.1 mmol/L (21-32); CHLORIDE SERUM 103 mmol/L (98-107); CREATININE SERUM 1.4 mg/dL (0.7-1.3); GLUCOSE SERUM 112 mg/dL (74-106); MAGNESIUM 1.9 mg/dL (1.8-2.4); PHOSPHOROUS 3.4 mg/dL (2.5-4.9); POTASSIUM SERUM 3.7 mmol/L (3.5-5.1); SODIUM SERUM 140 mmol/L (136-145)
--- NOTE | 2019-02-21 07:20 | NUR ---
RECEIVED PT FROM NIGHT RN. AAO X 4. DENIES ANY CHEST PAIN/PRESSURE. RESPIRATIONS UNLABORED WITH EQUAL EXPANSION. LUNGS CLEAR BILATERALLY. TELE 27 WITH SR AND HR 78. PERIPHERAL PULSES STRONG AND NO EDEMA NOTED. IV SL TO RFA AND CDI. PT RESTING IN BED WITH NO APPARENT DISTRESS. CALL LIGHT WITHIN REACH.
[2019-02-21 07:45] VITALS: BP 145/76
--- NOTE | 2019-02-21 11:00 | NUR ---
I HAVE REVIEWED THE DATA COLLECTION BY JESUS JOSUE (NAME):JOSE HAWKINS ENTERED ON (DATE/TIME):02/21/19 @ 1100 I CONCUR WITH THE DATA AND ANY EXCEPTIONS OR COMMENTS ARE LISTED BELOW:
[2019-02-21 11:27] VITALS: BP 130/80
[2019-02-21 16:22] VITALS: BP 111/69
--- NOTE | 2019-02-21 17:30 | NUR ---
CAME TO SEE PT. PER PT IS CLEARED ON HIS SIDE.PT MAY GO HOME.PAGED .
--- NOTE | 2019-02-21 18:04 | NUR ---
SPOKE WITH .INFORMED HER PT IS OK TO GO HOME PER . SAID PT WILL GO HOME TOMORROW.
--- NOTE | 2019-02-21 18:20 | NUR ---
NO SIGNIFICANT CHANGES NOTED. WILL ENDORSE CARE TO NIGHT RN.
--- NOTE | 2019-02-21 19:30 | NUR ---
RECEIVED AWAKE IN BED, ALERT AND ORIENTED. ABLE TO MAKE NEEDS KNOWN. SKIN WARM AND DRY TO TOUCH. RESPIRATION EVEN AND UNLABORED. ON TELE #27 WITH SR , DENEIS ANY CHEST PAIN/DISOCMFORT. PLACED CALL LIGHT WITHIN REACH, INSTRUCTED TO CALL FOR ANY ASSISTANCE NEEDED AND VERBALIZED UNDERSTANDING.
[2019-02-21 20:48] VITALS: BP 134/61
--- NOTE | 2019-02-22 00:01 | NUR ---
EYES CLOSED, NO FACIAL GRIMACING NOTED. RESPIRATION EVEN AND UNLABORED. NO S.S OF ACUTE DISTRES.
[2019-02-22 05:11] VITALS: BP 113/77
--- NOTE | 2019-02-22 05:45 | NUR ---
DENIES ANY CHEST PAIN/DISCOMFORT. NO S/S OF GLYCEMIC REACTION. ALL NEEDS ATTENDED.
[2019-02-22 06:04] LABS: BASOPHIL % 0.4 % (0-2); PLATELET COUNT 217 x10^3mcL (130-400)
[2019-02-22 06:31] LABS: RED CELL DISTRIBUTION WIDTH 15.1 % (11.5-14.5)
[2019-02-22 07:00] LABS: CALCIUM 9.3 mg/dL (8.5-10.1); CARBON DIOXIDE 26.1 mmol/L (21-32); CHLORIDE SERUM 104 mmol/L (98-107); CREATININE SERUM 1.3 mg/dL (0.7-1.3); GLUCOSE SERUM 90 mg/dL (74-106); POTASSIUM SERUM 3.6 mmol/L (3.5-5.1); SODIUM SERUM 139 mmol/L (136-145)
--- NOTE | 2019-02-22 07:00 | NUR ---
RECEIVED PT FROM NIGHT RN. AAOX4 AND RESTING IN BED. TELE #27 WITH 100% PACED. HR 88. RESPIRATIONS UNLABORED WITH EQUAL EXPANSION. NO SOB LUNG SOUNDS CLEAR ON RA. PERIPHERAL PULSES PALPABLE WITH NO EDEMA NOTED. DENES CHEST PAIN/PRESSURE. PLEASANT AND COOPERATIVE.
[2019-02-22 08:45] VITALS: BP 174/75
[2019-02-22 12:14] VITALS: BP 133/77
[2019-02-22 12:25] VITALS: BP 136/84
[2019-02-22 13:02] VITALS: BP 136/84
[2019-02-22 15:07] VITALS: BP 153/86
--- NOTE | 2019-02-22 15:39 | NUR ---
JOEL TAYLOR CRISIS INTERVENTION COUNSELOR AWARE SAI IS OUT OF HIS INSULIN PENS, NEEDLES, LANCETS AND STRIPS. SHE IS CALLING IN TO [facility] ON [address] [phone].
--- NOTE | 2019-02-22 16:34 | NUR ---
GAVE DISCHARGE INSTRUCTIONS TO PATIENT AND DAUGHTER. PRESCRIPTION WAS CALLED IN TO [facility] BY JOEL TAYLOR MACHINE BINDING FOLDER. REMOVED SALINE LOCK, ANGIO INTACT. PATIENT AND DAUGHTER VERBALIZED "I UNDERSTAND" TO ALL INSTRUCTIONS.
== END 2019-02-22 16:33 | disposition home or self-care (01) | DRG 205 ==
LOC: ED 14:57 → DU 19:13
PROVIDERS: ADMIT Family Medicine
DX: M94.0 Chondrocostal junction syndrome [Tietze] (principal); N17.0 Acute kidney failure with tubular necrosis; E11.65 Type 2 diabetes mellitus with hyperglycemia; I16.0 Hypertensive urgency; I11.0 Hypertensive heart disease with heart failure; I50.9 Heart failure, unspecified; I25.10 Atherosclerotic heart disease of native coronary artery without angina pectoris; I48.91 Unspecified atrial fibrillation; R74.0 Nonspecific elevation of levels of transaminase and lactic acid dehydrogenase [LDH]; N40.0 Benign prostatic hyperplasia without lower urinary tract symptoms; F14.11 Cocaine abuse, in remission; Z79.4 Long term (current) use of insulin; Z79.01 Long term (current) use of anticoagulants; Z68.34 Body mass index [BMI] 34.0-34.9, adult; Z95.0 Presence of cardiac pacemaker; Z95.5 Presence of coronary angioplasty implant and graft
CPT/HCPCS: 82962; 83880; 94150; 97116-GP; 97530-GP; G0378; J1815; Q0092